=== PATIENT | female | born 1995 | race Caucasian/White ===

== ENCOUNTER 2017-11-13 23:06 | Emergency (ER) | payer MEDICAID, SELFPAY ==
[2017-11-13 23:07] VITALS: BP 158/127; PULSE 100; RESP 18; TEMP 37; O2SAT 100; BMI 62.4
[2017-11-13 23:38] LABS: Vista UDS pH Range 6
[2017-11-13 23:45] LABS: Amphetamine Urine VISTA NEGATIVE (<1000 ng/mL); Barbiturate Urine VISTA NEGATIVE (< 200 ng/mL); Benzodiazepine Urine VISTA NEGATIVE (< 200 ng/mL); Cocaine Urine VISTA NEGATIVE (< 300 ng/mL); Ecstacy Urine VISTA NEGATIVE (< 500 ng/mL); Methadone Urine VISTA NEGATIVE (< 300 ng/mL); PCP Urine VISTA NEGATIVE (< 25 ng/mL); THC Urine VISTA NEGATIVE (< 50 ng/mL)
[2017-11-13 23:59] LABS: Absolute Lymphocyte Count 4.21 X10^3/ul (0.83-4.51); Absolute Neutrophil Count 10.1 X10^3/uL (2.0-7.7); Basophil% 0.6 % (0-1); Eosinophil# 0.75 X10^3/uL; Eosinophils% 4.7 % (0-5); Hematocrit 39.5 % (37-47); Hemoglobin 12.2 g/dl (12.0-15.0); Lymphocyte # 4.21 X10^3/ul (4.0); Lymphocyte % 26.7 % (19-41); Mean Corp Hgb Conc 30.9 g/gl (32-36); Mean Corpuscular Hgb 23.3 pg (27.0-32.0); Mean Corpuscular Volume 75.4 fL (81-99); Mean Platelet Vol. 11.1 fl (6.2-12.0); Monocyte# 0.63 X10^3/uL; Neutrophil # 10.05 X10^3/uL (2.7-7.7); Neutrophil % 63.7 % (47-70); Platelet Count 291 K/mm3 (150-450); RBC Distribution Width CV 17.3 % (11.6-14.6); RBC Distribution Width SD 46.1 fl (35.1-43.9); Red Blood Count 5.24 M/mm3 (4.2-5.4); White Blood Count 15.8 K/mm3 (4.4-11.0)
[2017-11-14] VITALS (9 sets, daily range): BP systolic 108–132; BP diastolic 45–68; PULSE 74–87; RESP 14–18; O2SAT 97–98
[2017-11-14] LABS: POSITIVE COUNT NO; POSITIVE DIFFERENTIAL NO; POSITIVE MORPHOLOGY NO
[2017-11-14 00:12] LABS: Alcohol, Blood (Medical)-Serum < 3.0 mg/dL
[2017-11-14 00:16] LABS: Anion Gap 9 (5-15); BUN 14 mg/dL (7-18); BUN/Creat Ratio 21.7 RATIO (10-20); Calcium,Total 8.6 mg/dL (8.5-10.1); Chloride 106 mmol/L (98-107); Creatinine, Serum 0.64 mg/dL (0.55-1.02); EST Glomerular Filtration Rate 124 mL/min (>60); Est Glom Filt Rate - Afr Amer 150 mL/min (>60); Estimated Creatinine Clearance 100.72 ml/min; Glucose 84 mg/dL (74-106); Potassium 4.1 mmol/L (3.5-5.1); Sodium Level 137 mmol/L (136-145)
[2017-11-14 00:28] LABS: Pregnancy, Serum, hCG Quali. NEGATIVE Negative (0-9 Nonpreg)
[2017-11-14 01:03] LABS: Mucous, Urine 0 SEEN /hpf (<or=2+); Red Blood Cells-Urine 0 SEEN /hpf (0-5)
[2017-11-14 01:06] LABS: Color, Urine Yellow (Yellow); Glucose, Dipstick Normal (Normal); Ketone-Dipstick Negative (Negative); Leukocyte Esterase-Dipstick Negative /ul (Negative); Nitrite-Dipstick Negative (Negative); Occult Blood-Urine Negative /ul (Negative); Protein-Dipstick Negative (Negative); Urine Bilirubin Dipstick Negative (Negative); Urine Clarity Sl. Cloudy (Clear); Urine Urobilinogen Normal (Normal)
[2017-11-14 01:17] LABS: Bacteria 1+ /hpf (None Seen); Squamous Epithelial Cells - UA 10-25 SEEN /hpf (5-10); White Blood Cells 0-5 SEEN /hpf (0-5)
[2017-11-14] MEDS: Acetaminophen 500 MG Tablet 1000 MG PO (01:40)
--- NOTE | 2017-11-14 01:45 | ED.RN ---
PT REPORTS ACKERMAN. DR. BERMUDEZ INFORMED. MEDICATION GIVEN ORDERED. PT GIVEN SPRITE. INFORMED COUNSELOR IS PRESENT AND WILL BE IN SHORTLY.
--- NOTE | 2017-11-14 03:12 | EKG12_ITS ---
Test Reason : SUICIDAL Blood Pressure : / mmHG Vent. Rate : 080 BPM Atrial Rate : 080 BPM P-R Int : 146 ms QRS Dur : 082 ms QT Int : 368 ms P-R-T Axes : 030 022 008 degrees QTc Int : 424 ms Normal sinus rhythm with sinus arrhythmia Normal ECG Confirmed by REYNALDO AYERS, MEÑO ([id number]), general expeditor ANDER HEMPHILL ([id number]) on 11/18/2017 4:37:26 PM Referred By: CHAD Confirmed By:MEÑO JACOBS MD
[2017-11-14 04:23] LABS: AST(SGOT) 23 U/L (15-37); Alanine Aminotransfer ALT/SGPT 29 U/L (13-56); Albumin, Serum 3.8 g/dL (3.2-5.0); Alkaline Phosphatase 106 U/L (45-117); Bilirubin, Direct < 0.05 mg/dL (0.00-0.30); Globulin 4.8 g/dL (2.2-4.2); Protein, Total 8.6 g/dL (6.4-8.2)
--- NOTE | 2017-11-14 04:57 | ED.DCSUM_ITS ---
- ER Visit Summary Date of Service: 11/14/17 Chief Complaint: Suicidal ideation History of Present Illness: The patient is a 22 F who reports suicidal thoughts for quite a while. Patient states she had a miscarriage in September and her suicidal thoughts have worsened since that time. Patient denies a specific plan but states she has spontaneous thoughts. For example, patient states she thought about turning her car in front of another vehicle tonight while driving to the emergency room. She seems to have these very impulsive and spontaneous random ideas on how to hurt herself. Patient has attempted suicide in the past. She has not been hospitalized for couple years. Past history significant for anxiety, depression, asthma, and PCOS. Physical Examination: Vital signs are significant for blood pressure 150/127, otherwise unremarkable. Patient sitting upright in bed no acute distress. Head neck examination is normal. Heart is regular rate and rhythm. Lung sounds are clear. Abdomen is soft, obese, nontender. Psychiatric evaluation reveals depressed affect with continued suicidal thoughts. Test Results: EKG is sinus at 80 with no sign of acute ischemia. CBC was a white count of 15.8 with normal differential. Chemistry studies and LFTs are normal. Urine is normal. test negative. Tox and EtOH are negative. Emergency Department Course and Treatment: Patient was given Tylenol for a headache here. She has been alert and cooperative. [facility] has seen the patient. She will likely require transfer and information has been sent to [facility]. We are waiting to hear back from them at this time. Treatment Plan: [] Disposition: Anticipated transfer Impression: Suicidal ideation This note was generated with Fluidnet dictation software. It may contain incorrect words, spelling, and punctuation that were not noted in review of the chart prior to signing ED Disposition - Plan for ED Patient: Chief Complaint: Suicidal Referrals: Care Physician,No Primary [Primary Care Provider] -
--- NOTE | 2017-11-14 07:05 | NURSING ---
MEME FROM CRISIS SAID THAT [facility] IS FULL AND PATIENT CHART IS ON THE DR NESBITT TO REVIEW THIS MORNING
--- NOTE | 2017-11-14 07:08 | ED.RN ---
Report received, care of patient assumed. Introduced self to patient. Patient arouses easily to name. Denies needs at this time. Await breakfast tray. Call light in reach.
--- NOTE | 2017-11-14 08:01 | NURSING ---
MEME CALLED AT [phone] AND STATED THAT [facility] WILL BE RECEIVING PATIENT LATER TODAY
--- NOTE | 2017-11-14 13:30 | CASEMGMT ---
Social Work - Emergency Department Received consult from ED RN NAOMI who reports [facility] staff had inquired whether hospital social welfare research worker could assist patient in getting insurance. Patient reportedly had Medicaid at one point but is currently self pay, slated to transfer to [facility] later today. 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 Met with patient, introducing to role and reason for visit. Patient confirms does not have insurance, at one point did have Medicaid but then lost insurance when moved out of mother's home. Patient reports has tried to call the 800 number to apply but has not had luck. Patient agreeable to start Medicaid application on paper, to have this faxed to [facility] in [place]. Educated patient that when out of [facility] patient should follow up with [facility] to status of application, and that likely there will be mail waiting for patient at home regarding what patient needs to gather for further processing of application. Patient voiced understanding. Faxed Medicaid application to [facility] in [place] at [phone]. Provided patient with list of what to gather up for application as well as number to call when patient is ready to follow up. Patient expresses understanding. Through conversation patient reports she and patient's boyfriend moved in with patient's grandmother and grandmother's boyfriend. The older adults in the home are independent with self care, though patient has been helping with transportation. The grandmother's boyfriend reportedly had a heart attack in September, but is due to be cleared for return to work next week. Patient reports to work 3rd shift at [employer], and that patient does give money to grandmother to help with food and household needs. Patient denies any safety concerns in the home. Patient reports life has been stressful with family members' health issues, and then patient also reportedly having a miscarriage in September (about 3-5 weeks gestation at time of loss per patient report). Patient reports agreement with plan for further mental health treatment. Patient teary eyed a few times during social work visit, affect flattened, eye contact normal, pleasant demeanor. Updated RN NAOMI Reaves of social work intervention. ED staff updated. No further needs requested or indicated. Further care and treatment to be provided by [facility], from there patient will have follow up and discharge plan formulated. -JULIA Ragland, JORJE
--- NOTE | 2017-11-14 13:58 | ED.RN ---
REPORT GIVEN TO JANE LAWSON AT [facility]. CANNOT ACCEPT PATIENT UNTIL AFTER 1530.
== END 2017-11-14 15:06 ==
PROVIDERS: Emergency Provider Emergency Medicine
DX: R45.851 Suicidal ideations (principal); E28.2 Polycystic ovarian syndrome; E66.9 Obesity, unspecified; Z72.0 Tobacco use
CPT/HCPCS: 80048; 80076; 80307; 80320; 81001; 84703; 85025; 93005; 99284; G0480

== ENCOUNTER 2017-12-27 19:07 | Emergency (ER) | payer MEDICAID, SELFPAY ==
[2017-12-27 19:09] VITALS: BP 150/109; PULSE 107; RESP 20; TEMP 36; O2SAT 98; BMI 62.1
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
[2017-12-27] MEDS: morphine 8 MG/ML Syringe IV (19:33)
[2017-12-27] MEDS: 0.9% Normal Saline 1,000 ML 250 ML IV (19:33)
[2017-12-27] MEDS: Ondansetron 4 MG/2 ML Vial IV (19:33)
[2017-12-27 20:05] LABS: Anion Gap 8 (5-15); BUN 17 mg/dL (7-18); BUN/Creat Ratio 20.8 RATIO (10-20); Calcium,Total 8.6 mg/dL (8.5-10.1); Chloride 108 mmol/L (98-107); Creatinine, Serum 0.82 mg/dL (0.55-1.02); EST Glomerular Filtration Rate 94 mL/min (>60); Est Glom Filt Rate - Afr Amer 114 mL/min (>60); Estimated Creatinine Clearance 78.61 ml/min; Glucose 90 mg/dL (74-106); Potassium 3.6 mmol/L (3.5-5.1); Sodium Level 142 mmol/L (136-145)
[2017-12-27 20:23] VITALS: BP 99/56; PULSE 84; RESP 18; O2SAT 95
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
[2017-12-27 22:11] VITALS: BP 110/64; PULSE 89; RESP 16; O2SAT 99
== END 2017-12-27 22:11 | disposition home or self-care (01) ==
PROVIDERS: Emergency Provider Emergency Medicine
DX: S20.211A Contusion of right front wall of thorax, initial encounter (principal); S30.1XXA Contusion of abdominal wall, initial encounter; E28.2 Polycystic ovarian syndrome; V48.1XXA Car passenger injured in noncollision transport accident in nontraffic accident, initial encounter; Y93.I9 Activity, other involving external motion; Y92.410 Unspecified street and highway as the place of occurrence of the external cause; Y99.8 Other external cause status
CPT/HCPCS: 74177; 80048; 96361; 96374; 96375; 99283; J7030; Q9967; J2405

== ENCOUNTER 2020-02-06 16:50 | Emergency (ER) | payer OTHER, SELFPAY ==
[2020-02-06 16:50] VITALS: BP 159/89; PULSE 115; RESP 20; TEMP 37.1; O2SAT 96; BMI 73.8
--- NOTE | 2020-02-06 17:06 | ED.VIS.GEN ---
History of Present Illness Chief Complaint: Sore Throat Informant: Patient Narrative: Patient presents the emergency department on day 3 with swollen tonsils with white spots. She states it is difficult for her to swallow because of the swelling. She notes soreness on the sides of her neck. No fever. No cough. She states she saw her doctor and they had her swab for COVID which came back negative. She works in home health care. Past Medical History - Allergies and Home Meds Allergies/Adverse Reactions: Allergies amoxicillin Allergy (Verified 02/06/20 16:51) Hives pseudoephedrine Allergy (Verified 12/29/17 16:38) Rash Primary Care Physician: Care Physician,No Primary [Primary Care Provider] - Smoking Status: Current some day smoker Review of Systems General: Denies: Chills, Fever, Sweats Eyes: Denies: Visual changes - bilaterally, Diplopia ENT: Reports: - - Swollen tonsils. Denies: Rhinorrhea, Sore throat Cardiovascular: Denies: Chest pain, Palpitations Respiratory: Denies: Dyspnea, Cough, Dyspnea on exertion Gastrointestinal: Denies: Abdominal pain, Nausea, Vomiting, Diarrhea, Melena, Hematochezia Genitourinary: Denies: Dysuria, Hematuria, Frequency Musculoskeletal: Denies: Back pain, Extremity Pain Skin: Denies: Rash, Wounds Neurological: Denies: Headache, Weakness, Numbness Physical Exam Vital Signs/Narrative: Vital Signs Temp Pulse Resp BP Pulse Ox 02/06/20 16:50 98.7 F 115 H 20 H 159/89 H 96 General: Well nourished, Well developed, No Acute Distress Head: Normocephalic, Atraumatic Eyes: Perrl, EOMI ENT: Moist mucous membranes, No rhinorrhea, - - Bilateral tonsillar enlargement with erythema and exudate. Neck: Supple, - - There are tender anterior lymph nodes. Cardiovascular: Regular rate, Regular rhythm, No murmurs Respiratory: No distress, CTA bilaterally, Chest nontender Abdomen: Soft, Nontender, Nondistended, Normal bowel sounds Back: Nontender, Normal Inspection Extremities: Nontender, No edema Skin: Normal color, No rash Neurological: Alert, Oriented x3, Cranial nerves II-XII grossly intact, Normal Strength, Normal Sensation Psychological: Normal affect, Normal Mood Diagnostic/Tx/Re-eval - Medical Decision Making Throat culture was obtained. She has 3 out of 4 Centor criteria. We placed on azithromycin due to amoxicillin allergy. I will also give her an oral dose of Decadron. We talked about mononucleosis and the testing for that. ED Disposition - Plan for ED Patient: Disposition: Home or Assisted Living Diagnosis: Streptococcal pharyngitis Instructions: ED Pharyngitis Report Pending Prescriptions: Azithromycin 500 mg PO DAILY #5 tab Transmission Status: Pending to [facility]30 Additional Instructions: Follow-up with your primary care physician if not improved
[2020-02-06] MEDS: dexAMETHasone 10 MG/ML Vial PO.IVFORM (17:15)
[2020-02-06 17:17] VITALS: BP 159/89; PULSE 115; RESP 20; TEMP 37.1; O2SAT 96
== END 2020-02-06 17:42 | disposition home or self-care (01) ==
LOC: ED 17:34
PROVIDERS: Emergency Provider Emergency Medicine
DX: J02.0 Streptococcal pharyngitis (principal); F17.210 Nicotine dependence, cigarettes, uncomplicated
CPT/HCPCS: 87070; 99283

== ENCOUNTER 2020-10-05 19:01 | Inpatient (IN) | payer OTHER, SELFPAY ==
[2020-10-05 19:01] VITALS: BP 147/82; PULSE 112; PULSE 116; RESP 18; TEMP 36.1; O2SAT 97; BMI 74.9
[2020-10-05] MEDS: 0.9% Normal Saline 1,000 ML 1000 ML IV (19:29)
[2020-10-05] MEDS: Mag Hydrox/Al Hydrox/Simeth 30 ML UDC PO (19:29)
[2020-10-05] MEDS: Ondansetron 4 MG/2 ML Vial IV (19:29)
[2020-10-05 19:37] LABS: Absolute Lymphocyte Count 2.61 X10^3/uL (0.83-4.51); Absolute Neutrophil Count 11.9 X10^3/uL (2.0-7.7); Basophil# 0.09 X10^3/uL; Basophil% 0.6 % (0-1); Eosinophil# 0.53 X10^3/uL; Eosinophils% 3.3 % (0-5); Hematocrit 36.9 % (37-47); Hemoglobin 11.4 g/dL (12.0-15.0); Lymphocyte # 2.61 X10^3/ul (4.0); Lymphocyte % 16.3 % (19-41); Mean Corp Hgb Conc 30.9 g/dL (32-36); Mean Corpuscular Hgb 24.1 pg (27.0-32.0); Monocyte# 0.79 X10^3/uL; Monocyte% 4.9 % (0-10); NRBC Flagged by Analyzer 0 % (0-5); Neutrophil # 11.86 X10^3/uL (2.7-7.7); Neutrophil % 74.3 % (47-70); Platelet Count 338 K/mm3 (150-450); RBC Distribution Width CV 15.9 % (11.6-14.6); Red Blood Count 4.73 M/mm3 (4.2-5.4)
[2020-10-05 19:49] LABS: Internal QC Validated? YES +Cl - CLEAR BKGD; Pregnancy, Serum, hCG Quali. NEGATIVE Negative
[2020-10-05 20:00] LABS: ALB/GLOB Ratio 0.6 RATIO (0.9-2.4); AST(SGOT) 20 U/L (15-37); Alanine Aminotransfer ALT/SGPT 41 U/L (13-56); Albumin, Serum 3.3 g/dL (3.2-5.0); Alkaline Phosphatase 108 U/L (45-117); Anion Gap 5 (5-15); BUN 10 mg/dL (7-18); BUN/Creat Ratio 11.6 RATIO (10-20); Calcium,Total 9.1 mg/dL (8.5-10.1); Chloride 107 mmol/L (98-107); Creatinine, Serum 0.86 mg/dL (0.55-1.02); EST Glomerular Filtration Rate 87 mL/min (>60); Est Glom Filt Rate - Afr Amer 105 mL/min (>60); Estimated Creatinine Clearance 73.08 ml/min; Globulin 5.1 g/dL (2.2-4.2); Glucose 98 mg/dL (74-106); Lipase 7791 U/L (73-393); Potassium 3.5 mmol/L (3.5-5.1); Protein, Total 8.4 g/dL (6.4-8.2); Sodium Level 138 mmol/L (136-145)
--- NOTE | 2020-10-05 20:18 | US_ITS ---
HISTORY: Abdominal pain. Pancreatitis. TECHNIQUE: Whitehead scale and color doppler imaging was performed of the pancreas, liver, and gallbladder. COMPARISON: Most recent comparison study is a CT scan of the abdomen and pelvis from December 27, 2017. The study is limited in utility due to the patient's large size of over 400 pounds. FINDINGS: # of images incl. paperwork: 112 The liver is borderline enlarged at 18.3 cm. The liver is coarse in echotexture as well poor visualization of intrahepatic vascular structures, suggestive of hepatic steatosis No gallstones, gallbladder wall thickening or biliary dilatation. Gallbladder wall measures 1 mm. Common bile duct measures 4 mm. No tenderness upon insonation the gallbladder. Visualized pancreas is normal in appearance. Right kidney is normal in size and appearance. The IVC and aorta are not well seen. Hepatopedal flow is present within the central portal vein. US/Abdomen Limited IMPRESSION: Limited study due to patient's large body habitus. No acute disease perceived. Probable hepatomegaly and hepatic steatosis.. at 2129 Reported and signed by: Niels Medellin MD Electronically Signed: Niels Medellin MD at 21:28 EST Tel , Service support ,
[2020-10-05] MEDS: Morphine 4 MG/ML Syringe IV (20:31)
--- NOTE | 2020-10-05 20:31 | ED.VISSUMM ---
- ER Visit Summary Date of Service: 10/05/20 Chief Complaint: Abdominal pain History of Present Illness: The patient is a 25 F with no primary care physician. She reports that she has upper abdominal pain that began approximately week ago. Is an intermittent pain lasts hours at a time. She describes it as a sharp, burning pain. States that currently it is 5 out of 10 in severity. Stated 10 at worst. Is worsened by movement. Is relieved by laying down. She reports has had a poor appetite. She denies any intolerance to spicy or fatty foods. She reports that she been nausea and vomited 3 times. No blood in her emesis. She had one episode of diarrhea today. No blood in her stools or black tarry stools. No dysuria or frequency. She is on her menstrual period now. She reports that she has been on this for 12-1/2 weeks and then it ended 4 to 4 days and then came back. Physical Examination: Vitals: Stable. Afebrile. General: Well-nourished and well-developed. Head: Normocephalic atraumatic. Neck: Supple, no lymphadenopathy. No JVD. Nontender. Cardiovascular: Regular rate and rhythm. No murmurs. Respiratory: No respiratory distress. Clear to auscultation bilaterally. Abdominal: Soft, mild epigastric tenderness to palpation, no tenderness in the right upper quadrant and negative Mach[place] sign, nondistended, normal bowel sounds. No guarding, rebound, or peritoneal signs. Back: Nontender. Extremities: Nontender, no edema. Skin: Normal color, no rash. Neurologic: Alert and oriented ?3. Cranial nerves II through XII are intact. Normal strength and sensation. Psych: Normal affect. Test Results: CBC shows a white count of 16.0 74 segmented neutrophils and 16 lymphocytes. H&H is 11.4 and 36.9. Chem-7 is normal. LFTs show a total protein of 8.4 and globin of 5.1. Lipase is 7791. test is negative. Clinical Impression(s) from Imaging Studies Abdomen Ultrasound 10/05/20 20:18 IMPRESSION: Limited study due to patient's large body habitus. No acute disease perceived. Probable hepatomegaly and hepatic steatosis.. at 2129 Reported and signed by: Niels Medellin MD Electronically Signed: Niels Medellin MD at 21:28 EST Tel , Service support , Emergency Department Course and Treatment: Patient had an IV placed. She was given Zofran IV and a GI cocktail with no relief. She was then given morphine IV and is resting more comfortably. Treatment Plan: The patient was discussed with Dr. Lawson and will be admitted for further evaluation and treatment. Disposition: Admitted in stable condition. Impression: 1. Pancreatitis. This note was generated with Infiniu dictation software. It may contain incorrect words, spelling, and punctuation that were not noted in review of the chart prior to signing ED Disposition - Plan for ED Patient:
[2020-10-05 21:01] VITALS: RESP 18
[2020-10-05 22:00] VITALS: BP 148/91; PULSE 91; RESP 18; TEMP 36.9; O2SAT 98
[2020-10-05 22:35] LABS: Bedside Glucose 85 mg/dL (70-110)
[2020-10-05 22:36] LABS: Cholesterol 226 mg/dL (200); High Density Lipoprotein 30 mg/dL; Triglycerides 169 mg/dL; Very Low Density Lipoprotein 34 mg/dL (5-40)
--- NOTE | 2020-10-05 22:59 | PCM.HP.STD ---
Problem List (1) Pancreatitis Status: Acute (2) Streptococcal pharyngitis Status: Inactive History of Present Illness Date of Admission: 10/05/20 Chief Complaint: epigastric pain The patient is a 25 year old F with a significant history of morbid obesity; major depression; PTSD and PCOS who presents emergency department with a 1 week history of episodic epigastric pain that radiates to her lower back. She describes her pain as sharp and burning. Associated with her symptoms is nausea and vomiting. Her pain typically is 5-6 on a scale of 1-10. Occasionally her pain gets higher than that. The pain improves with rest and it worsens with activity. Patient saw her PCP about a week ago. Her PCP thought patient may be having food poisoning. Also patient reports a decrease in urination and a painful severe constipation. However on the day of presentation she had loose stools. She reports poor appetite. Past Medical History Medical History: Medical History (Last Reviewed 10/05/20 @ 23:[address] Janak Lawson MD) Asthma J45.909 Chest pain R07.9 PCOS (polycystic ovarian syndrome) E28.2 Suicidal thoughts R45.851 HTN (hypertension) I10 Allergies amoxicillin Allergy (Verified 02/06/20 17:17) Hives pseudoephedrine Allergy (Verified 02/06/20 17:17) Rash Home Medications: Ambulatory Orders Medication Instructions Recorded sertraline 25 mg tablet 25 mg PO QDAY #14 tab 12/29/17 Buspirone HCl 30 mg PO DAILY 02/06/20 metFORMIN HCl [Glucophage] 500 mg PO BID 02/06/20 Surgical History: - - Finger surgery; D&C Smoking Status: Never smoker - *Family History Maternal Family History: Family History (Last Reviewed 10/05/20 @ 23:[address] Janak Lawson MD) Other Diabetes Review of Systems Constitutional: Denies: Chills, Fever, Weight Change HEENT: Denies: Head Aches, Sinus Congestion, Sinus Drainage Cardiovascular: Denies: Chest Pain, Palpitations Respiratory: Denies: Cough, Shortness of breath at rest, Sputum production Gastrointestinal: Reports: Abdominal Pain, Constipation, Diarrhea, Nausea, Vomiting Genitourinary: Denies: Dysuria Musculoskeletal: Denies: Joint Pain, Joint Tenderness Skin: Denies: Rash, Wounds Neurological: Denies: Numbness, Tingling, Focal weakness Psychiatric: Reports: Depression. Denies: Anxiety, Homicidal Ideations, Suicidal Ideations Hematologic/ Lymphatic: Denies: Easy Bruising, Easy Bleeding VTE Information - Inpt Only VTE Present on Admission: No VTE Mechan Device Prophylaxis: None VTE Pharm Prophylaxis ordered?: Yes Patient Problems: Active and Suspected Problems (Last Updated 12/29/17 @ 16:40 by Lily Jacques) Pancreatitis (Acute) - Physical Exam Vitals/I&O's: Vital Signs Temp Pulse Resp BP Pulse Ox 98.4 F 91 18 148/91 H 98 10/05/20 22:00 10/05/20 22:00 10/05/20 22:00 10/05/20 22:00 10/05/20 22:00 Oxygen Delivery Method Room Air Weight: 174.1 kg Body Mass Index (BMI) 74.9 Finger Stick Blood Glucose 85 Intake and Output for Last 24 Hours 10/03/20 10/04/20 10/05/20 23:59 23:59 23:59 Intake Total 1000 / 1000 Balance 1000 / 1000 General: Alert, Oriented x3, Cooperative, - - Obese HEENT: Atraumatic, PERRLA, EOMI, Normocephalic Neck: Supple, No JVD, Negative Carotid Bruits Lungs: Clear to auscultation, Normal air movement, No rhonchi, No wheeze, No rales Cardiovascular: Regular rate, Normal S1, Normal S2, No murmurs Abdomen: Bowel Sounds Present, Soft, Non Tender Extremities: No edema, Capillary Refill Less than 3 Seconds Skin: No rashes, No breakdown Musculoskeletal: No Tenderness to Palpation of Joints or Extremities Neurological: Cranial nerves II-XII grossly intact Psych/Mental Status: Normal Affect, Appropriate Laboratory Results 10/05/20 19:31: WBC 16.0 H, RBC 4.73, Hgb 11.4 L, Hct 36.9 L, MCV 78.0 L, MCH 24.1 L, MCHC 30.9 L, RDW Std Deviation 45.0 H, RDW Coeff of Flavia 15.9 H, Plt Count 338, MPV 11.0, Immature Gran % (Auto) 0.600, Neut % (Auto) 74.3 H, Lymph % (Auto) 16.3 L, [place] % (Auto) 4.9, Eos % (Auto) 3.3, Baso % (Auto) 0.6, Absolute Neuts (auto) 11.9 H, Absolute Lymphs (auto) 2.61, Nucleated RBC % 0 10/05/20 19:31: Sodium 138, Potassium 3.5, Chloride 107, Carbon Dioxide 26.0, Anion Gap 5, BUN 10, Creatinine 0.86, Estim Creat Clear Calc 73.08, Est GFR (MDRD) Af Amer 105, Est GFR (MDRD) Non-Af 87, BUN/Creatinine Ratio 11.6, Glucose 98, Calcium 9.1, Total Bilirubin 0.40, AST 20, ALT 41, Alkaline Phosphatase 108, Total Protein 8.4 H, Albumin 3.3, Globulin 5.1 H, Albumin/Globulin Ratio 0.6 L, Lipase 7791 H 10/05/20 19:31: Serum , Qual NEGATIVE 10/05/20 19:31: Triglycerides 169, Cholesterol 226 H, LDL Cholesterol 162 H, VLDL Cholesterol 34, HDL Cholesterol 30 L 10/05/20 22:29: POC Glucose 85 Assessment/Plan All Active Problems (Last Updated 12/29/17 @ 16:40 by Lily Jacques) Pancreatitis (Acute) The patient is a 25 year old F with a significant history of morbid obesity; major depression; PTSD and PCOS who presents to the emergency department with a 1 week history of episodic epigastric pain that radiates to her lower back and found to have elevated lipase. Acute pancreatitis Abdomen was not optimal steady. Patient want to try food. Regular diet ordered. N.p.o. after midnight for HIDA scan. Morphine IV as needed for pain and Zofran IV as needed for nausea and vomiting. IV hydration with lactated Ringer's. Discussed emergent department doctor to get a lipid panel. Lipid panel returned with triglyceride of 169. Electrolytes are normal. Patient is an occasional drinker. Last time she drank was Halloween time Review of medical department labs showed elevated lipase and leukocytosis. Trend CBC and CMP. PCOS Hold metformin the hospital setting. Of note patient reports episodes of hypoglycemia at home. Trend CMP as above Morbid Obesity BMI: 75 kg/m?. Complicates care. Lifestyle modification recommended. Hyperlipidemia: Lipid panel with cholesterol 226. LDL cholesterol of 162. HDL cholesterol of 30. Lifestyle modification recommended. DVT prophylaxis Subcutaneous Lovenox ordered. Inpatient E&M: 63361 Init Hosp L3
--- NOTE | 2020-10-05 23:17 | NM_ITS ---
STUDY: NUCLEAR MEDICINE HIDA SCAN REASON FOR EXAM: Female, 25 years old. Abdominal pain, some nausea RADIATION DOSAGE (If Supplied By Facility): CTDIvol = ( ) mGy, DLP = ( ) mGycm. Individualized dose optimization techniques were used for this CT.? TECHNIQUE: Patient was injected with 5.8 mCi of mebrofenin, and scintiphotographs were taken every 1 minute to 60 minutes, then patient was injected with 3.5 mcg of SINCALIDE COMPARISON: Ultrasound from yesterday FINDINGS: There is prompt uptake of radiotracer by the liver. There is concentration and excretion of radiotracer by the liver into the common bile duct by 13 minutes, and greater tracer activity is noted within the gallbladder by 60 minutes. Radiotracer is noted within the duodenum by 30 minutes. Because no biliary obstruction was noted, patient was injected with SINCALIDE, and measurements for ejection fraction were obtained. The gallbladder ejection fraction measures only 5% which is abnormal and suggests biliary dyskinesia. NM/Hepatobilliary Img w/Pharm Int IMPRESSION: Normal filling of the gallbladder, and no biliary obstruction noted. Abnormally low gallbladder ejection fraction of 5% suggests biliary dyskinesia. Electronically Signed: Jim Mace MD at 12:35 EST , Service support ,
[2020-10-05 23:18] VITALS: BMI 74.2
[2020-10-05 23:26] VITALS: BP 120/55; PULSE 95; RESP 16; TEMP 36.8; O2SAT 100
[2020-10-05 23:37] VITALS: BMI 74.2
[2020-10-05] MEDS: Enoxaparin 40 MG/0.4 ML Syringe SC (23:48)
[2020-10-05] MEDS: 0.9% Saline Lock 10 ML Syringe IV (23:48)
[2020-10-05] MEDS: Lactated Ringers 1,000 ML 150 ML IV (23:48)
[2020-10-06 05:18] VITALS: BP 116/89; PULSE 93; RESP 18; TEMP 36.5; O2SAT 97
[2020-10-06] MEDS: Lactated Ringers 1,000 ML 150 ML IV (05:21)
[2020-10-06] MEDS: Ketorolac 15 MG/ML Vial IV ×2 (05:21→16:30)
[2020-10-06 06:40] LABS: Absolute Lymphocyte Count 3.51 X10^3/uL (0.83-4.51); Absolute Neutrophil Count 5.8 X10^3/uL (2.0-7.7); Basophil# 0.07 X10^3/uL; Basophil% 0.6 % (0-1); Eosinophil# 0.77 X10^3/uL; Eosinophils% 7.1 % (0-5); Hematocrit 33.8 % (37-47); Hemoglobin 10.5 g/dL (12.0-15.0); Lymphocyte # 3.51 X10^3/ul (4.0); Lymphocyte % 32.6 % (19-41); Mean Corp Hgb Conc 31.1 g/dL (32-36); Mean Corpuscular Hgb 24.4 pg (27.0-32.0); Mean Corpuscular Volume 78.4 fL (81-99); Mean Platelet Vol. 10.6 fl (6.2-12.0); Monocyte# 0.57 X10^3/uL; Monocyte% 5.3 % (0-10); NRBC Flagged by Analyzer 0 % (0-5); Neutrophil # 5.83 X10^3/uL (2.7-7.7); Neutrophil % 54.1 % (47-70); Platelet Count 303 K/mm3 (150-450); Red Blood Count 4.31 M/mm3 (4.2-5.4); White Blood Count 10.8 K/mm3 (4.4-11.0)
[2020-10-06 07:10] LABS: ALB/GLOB Ratio 0.6 RATIO (0.9-2.4); AST(SGOT) 18 U/L (15-37); Alanine Aminotransfer ALT/SGPT 36 U/L (13-56); Albumin, Serum 2.9 g/dL (3.2-5.0); Alkaline Phosphatase 94 U/L (45-117); Anion Gap 4 (5-15); BUN 10 mg/dL (7-18); BUN/Creat Ratio 12.3 RATIO (10-20); Calcium,Total 8.6 mg/dL (8.5-10.1); Chloride 107 mmol/L (98-107); Creatinine, Serum 0.81 mg/dL (0.55-1.02); EST Glomerular Filtration Rate 92 mL/min (>60); Est Glom Filt Rate - Afr Amer 112 mL/min (>60); Estimated Creatinine Clearance 77.59 ml/min; Globulin 4.5 g/dL (2.2-4.2); Glucose 96 mg/dL (74-106); Potassium 3.7 mmol/L (3.5-5.1); Protein, Total 7.4 g/dL (6.4-8.2); Sodium Level 140 mmol/L (136-145)
[2020-10-06 10:49] VITALS: BP 109/52; PULSE 72; RESP 18; TEMP 36.8; O2SAT 98
[2020-10-06] MEDS: Sertraline 50 MG Tablet 25 MG PO (10:59)
[2020-10-06] MEDS: Enoxaparin 40 MG/0.4 ML Syringe SC ×2 (10:59→22:27)
[2020-10-06 11:00] VITALS: BP 135/71; PULSE 80; RESP 16; TEMP 36.9; O2SAT 98
[2020-10-06] MEDS: Famotidine 200 MG/20 ML MDV 20 MG in 0.9% Normal Saline (Pres. free 8 ML 300 MG IV ×2 (11:04→22:28)
[2020-10-06 11:09] VITALS: RESP 16
--- NOTE | 2020-10-06 11:50 | CASEMGMT ---
RN NAOMI BODY COVERER CM to room to meet with patient for initial transition planning/care coordination assessment. RENNY SALGADO introduced self and role at [facility]. Pt voices understanding and consents to assessment at this time. Pt resting in bed in no distress at this time. Pt is A/O at this time and answers all questions appropriately. Care providers, pharmacy, and demographics verified/updated at this time. PCP: [facility] in [place] Specialists: None Preferred Pharmacy: [facility] in [place] Insurance: Commercial Insurance through her job Prescription Benefit: None Living Will/HPOA: States does not have LW or HCPOA . Interested in more information and would like to talk with SW at this time to complete paperwork. Made aware SW will be notified, but if SW is unable to meet with her prior to discharge, she was also provided information on advanced directives and given Social Service rac card with number to call if chooses in the future to utilize [facility] social work for advanced directive completion. LNOK: Mother, Kiesha. Grandmother, Nikki Living Arrangements: Lives alone in trailer w/3 steps to enter. Independent w/ADL's and IADL's. 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 Transportation: Pt states drives self and states no transportation concerns at this time. Mother will take her home @ d/c. DME: Has a glucometer. Pt states no need for further DME at this time. HHC/SNF: No history of either. No needs identified. Pt wishes to return home and states has no concerns with going home at time of discharge. CM to follow for any discharge planning/needs. Pt voices no further concerns/needs at this time. Advised pt to ask for CM if any further questions/concerns/needs arise. Voices understanding. PLAN: Home Pt does not have prescription coverage. Follow for any concerns w/cost of new medications at discharge. Alfredo GOMEZ RN, CM
--- NOTE | 2020-10-06 11:52 | PN_ITS ---
Patient Problems: Active and Suspected Problems (Last Reviewed 10/05/20 @ 23:[address] Janak Lawson MD) Pancreatitis (Acute) Subjective: Chief complaint: Follow-up after admission for acute pancreatitis. Patient seen and examined. No acute events overnight. Abdominal pain improved but still there. Denied nausea or vomiting. She complained of minimal right upper quadrant abdominal pain as well which is also improved. Denies fever chills. Denied drinking alcohol. Denied taking control pills. Her vital signs are stable. - Physical Exam Vitals/I&O's: Vital Signs Temp Pulse Resp BP Pulse Ox 98.5 F 80 16 135/71 H 98 10/06/20 11:00 10/06/20 11:00 10/06/20 11:09 10/06/20 11:00 10/06/20 11:00 Oxygen Delivery Method Room Air Weight: 380 lb Body Mass Index (BMI) 74.2 Finger Stick Blood Glucose 85 Intake and Output for Last 24 Hours 10/04/20 10/05/20 10/06/20 23:59 23:59 23:59 Intake Total 1000 / 1000 1305.0 / 1305.0 Output Total 0 / 0 Balance 1000 / 1000 1305.0 / 1305.0 General: Alert, Oriented x3, Cooperative, No apparent distress HEENT: Atraumatic, PERRLA, EOMI, Normocephalic Oral: Moist Mucosa, No Gingival or Mucosal Lesions/ Ulcerations Neck: Supple, No JVD, Negative Carotid Bruits, Trachea Midline, Thyroid Normal Size and Texture Lungs: Clear to auscultation, Normal air movement, No rhonchi, No wheeze, No rales, Diminished Cardiovascular: Regular rate, Regular Rhythm, Normal S1, Normal S2, PMI Normal Abdomen: Bowel Sounds Present, Soft, Non-Distended, No Hepato-splenomegaly, Obese, Tender - Minimal epigastric tenderness, no guarding or rigidity. Extremities: No clubbing, No cyanosis, No edema Skin: No rashes, No breakdown Lymphatic: No Cervical, Supraclavicular, or Inguinal Adenopathy Neurological: Cranial nerves II-XII grossly intact, Motor Exam 5/5 strength throughout Psych/Mental Status: Normal Affect, Appropriate, Alert and oriented to time, place, person, mood and affect Laboratory Results 10/05/20 19:31: WBC 16.0 H, RBC 4.73, Hgb 11.4 L, Hct 36.9 L, MCV 78.0 L, MCH 24.1 L, MCHC 30.9 L, RDW Std Deviation 45.0 H, RDW Coeff of Flavia 15.9 H, Plt Count 338, MPV 11.0, Immature Gran % (Auto) 0.600, Neut % (Auto) 74.3 H, Lymph % (Auto) 16.3 L, [place] % (Auto) 4.9, Eos % (Auto) 3.3, Baso % (Auto) 0.6, Absolute Neuts (auto) 11.9 H, Absolute Lymphs (auto) 2.61, Nucleated RBC % 0 10/05/20 19:31: Sodium 138, Potassium 3.5, Chloride 107, Carbon Dioxide 26.0, Anion Gap 5, BUN 10, Creatinine 0.86, Estim Creat Clear Calc 73.08, Est GFR (MDRD) Af Amer 105, Est GFR (MDRD) Non-Af 87, BUN/Creatinine Ratio 11.6, Glucose 98, Calcium 9.1, Total Bilirubin 0.40, AST 20, ALT 41, Alkaline Phosphatase 108, Total Protein 8.4 H, Albumin 3.3, Globulin 5.1 H, Albumin/Globulin Ratio 0.6 L, Lipase 7791 H 10/05/20 19:31: Serum , Qual NEGATIVE 10/05/20 19:31: Triglycerides 169, Cholesterol 226 H, LDL Cholesterol 162 H, VLDL Cholesterol 34, HDL Cholesterol 30 L 10/05/20 22:29: POC Glucose 85 10/06/20 06:25: WBC 10.8, RBC 4.31, Hgb 10.5 L, Hct 33.8 L, MCV 78.4 L, MCH 24.4 L, MCHC 31.1 L, RDW Std Deviation 46.0 H, RDW Coeff of Flavia 16.0 H, Plt Count 303, MPV 10.6, Immature Gran % (Auto) 0.300, Neut % (Auto) 54.1, Lymph % (Auto) 32.6, [place] % (Auto) 5.3, Eos % (Auto) 7.1 H, Baso % (Auto) 0.6, Absolute Neuts (auto) 5.8, Absolute Lymphs (auto) 3.51, Nucleated RBC % 0 10/06/20 06:25: Sodium 140, Potassium 3.7, Chloride 107, Carbon Dioxide 29.0, Anion Gap 4 L, BUN 10, Creatinine 0.81, Estim Creat Clear Calc 77.59, Est GFR (MDRD) Af Amer 112, Est GFR (MDRD) Non-Af 92, BUN/Creatinine Ratio 12.3, Glucose 96, Calcium 8.6, Total Bilirubin 0.50, AST 18, ALT 36, Alkaline Phosphatase 94, Total Protein 7.4, Albumin 2.9 L, Globulin 4.5 H, Albumin/Globulin Ratio 0.6 L Clinical Impression(s) from Imaging Studies Abdomen Ultrasound 10/05/20 20:18 IMPRESSION: Limited study due to patient's large body habitus. No acute disease perceived. Probable hepatomegaly and hepatic steatosis.. at 2129 Reported and signed by: Niels Medellin MD Electronically Signed: Niels Medellin MD at 21:28 EST Tel , Service support , Current Medications Buspirone HCl (Buspirone 5 Mg Tablet) [address] [facility] Last Admin: 10/06/20 05:25 Dose: Not Given Documented by: Enoxaparin Sodium (Enoxaparin 40 Mg/0.4 Ml Syringe) [address] [facility] Last Admin: 10/06/20 10:59 Dose: 40 mg Documented by: Lactated Ringer's () 1,000 mls @ 100 mls/hr IV .Q10H [facility] Last Infusion: 10/06/20 10:42 Dose: 100 mls/hr Documented by: Famotidine 20 mg/ Sodium (Chloride) 10 mls @ 300 mls/hr IV Q12 [facility] Last Admin: 10/06/20 11:04 Dose: 300 mls/hr Documented by: Ketorolac Tromethamine (Ketorolac 15 Mg/Ml Vial) 15 mg IV Q6H PRN PRN PRN Reason: pain 6-10 Stop: 10/11/20 02:20 Last Admin: 10/06/20 05:21 Dose: 15 mg Documented by: Ondansetron HCl (Ondansetron 4 Mg/2 Ml Vial) 4 mg IV Q6H PRN PRN PRN Reason: NAUSEA/VOMITING Sertraline HCl (Sertraline 50 Mg Tablet) [address] [facility] Last Admin: 10/06/20 10:59 Dose: 25 mg Documented by: Sodium Chloride (0.9% Saline Lock 10 Ml Syringe) 10 - 40 ml IV UD PRN PRN Reason: SALINE FLUSH Last Admin: 10/05/20 23:48 Dose: 10 ml Documented by: Medical Necessity - Tobacco Use Smoking Status: Former smoker Assessment/Plan All Active Problems (Last Reviewed 10/05/20 @ 23:[address] Janak Lawson MD) Pancreatitis (Acute) This is a 25 years old female patient presented to the emergency room because of epigastric pain and she was found to have elevated lipase consistent with acute pancreatitis and she was admitted for evaluation and treatment. #1 acute pancreatitis: Unclear etiology. Patient denied drinking alcohol. She is on IV fluids, IV antiemetics. LFT was unremarkable. Lipid profile revealed triglyceride of 169, total cholesterol of 226. She is not taking any medication that causes pancreatitis. Serum was negative. Ultrasound gallbladder was limited, revealed no gallstones, no biliary dilation, CBD diameter was normal. HIDA scan was done this morning, awaiting the results. Plan: Start IV morphine as needed for pain, IV Pepcid twice daily, repeat CBC and CMP tomorrow morning, repeat lipase tomorrow morning. #2 polycystic ovary syndrome: Metformin held at this time. #3 anxiety/depression/PTSD: Continue BuSpar, Zoloft. #4 DVT prophylaxis: Subcu Lovenox. This note was generated with [employer] dictation software. It may contain incorrect words, spelling, and punctuation that were not noted in checking the note before signing. Inpatient E&M: 62608 Subs Hosp L2
[2020-10-06] MEDS: busPIRone 5 MG Tablet 10 MG PO ×2 (15:05→22:28)
--- NOTE | 2020-10-06 15:55 | CASEMGMT ---
SW spoke w/pt in room in regard to LW/POA form and no prescription coverage. SW gave pt resources for prescription assistance. SW also spoke w/pt about LW/POA forms. Pt would like to complete POA form. SW explained will come back tomorrow to assist with this. SW to follow up w/pt tomorrow. JULIA Naranjo
[2020-10-06] MEDS: Lactated Ringers 1,000 ML 100 ML IV (16:30)
[2020-10-06 17:00] VITALS: BP 131/61; PULSE 66; RESP 16; RESP 18; TEMP 36.6; O2SAT 98
[2020-10-06 22:22] VITALS: BP 135/75; PULSE 82; RESP 17; TEMP 36.6; O2SAT 98
[2020-10-07] MEDS: Lactated Ringers 1,000 ML 100 ML IV (02:10)
[2020-10-07 02:12] VITALS: BP 130/60; PULSE 69; RESP 16; TEMP 36.8; O2SAT 96
[2020-10-07] MEDS: busPIRone 5 MG Tablet 10 MG PO (05:33)
[2020-10-07 06:41] LABS: Absolute Lymphocyte Count 2.59 X10^3/uL (0.83-4.51); Absolute Neutrophil Count 5.4 X10^3/uL (2.0-7.7); Basophil# 0.05 X10^3/uL; Basophil% 0.5 % (0-1); Eosinophil# 0.85 X10^3/uL; Eosinophils% 9.1 % (0-5); Hematocrit 34.6 % (37-47); Hemoglobin 10.5 g/dL (12.0-15.0); Lymphocyte # 2.59 X10^3/ul (4.0); Lymphocyte % 27.7 % (19-41); Mean Corp Hgb Conc 30.3 g/dL (32-36); Mean Corpuscular Hgb 24.1 pg (27.0-32.0); Mean Corpuscular Volume 79.4 fL (81-99); Mean Platelet Vol. 10.6 fl (6.2-12.0); Monocyte# 0.47 X10^3/uL; NRBC Flagged by Analyzer 0 % (0-5); Neutrophil # 5.37 X10^3/uL (2.7-7.7); Neutrophil % 57.5 % (47-70); Platelet Count 276 K/mm3 (150-450); RBC Distribution Width CV 15.9 % (11.6-14.6); RBC Distribution Width SD 45.7 fl (35.1-43.9); Red Blood Count 4.36 M/mm3 (4.2-5.4); White Blood Count 9.4 K/mm3 (4.4-11.0)
[2020-10-07 07:12] LABS: ALB/GLOB Ratio 0.6 RATIO (0.9-2.4); AST(SGOT) 20 U/L (15-37); Alanine Aminotransfer ALT/SGPT 35 U/L (13-56); Albumin, Serum 2.8 g/dL (3.2-5.0); Alkaline Phosphatase 88 U/L (45-117); Anion Gap 7 (5-15); BUN 9 mg/dL (7-18); Calcium,Total 8.4 mg/dL (8.5-10.1); Chloride 106 mmol/L (98-107); Creatinine, Serum 0.75 mg/dL (0.55-1.02); EST Glomerular Filtration Rate 102 mL/min (>60); Est Glom Filt Rate - Afr Amer 123 mL/min (>60); Globulin 4.4 g/dL (2.2-4.2); Glucose 81 mg/dL (74-106); Lipase 123 U/L (73-393); Potassium 3.5 mmol/L (3.5-5.1); Protein, Total 7.2 g/dL (6.4-8.2); Sodium Level 139 mmol/L (136-145)
[2020-10-07 08:38] VITALS: BP 124/61; PULSE 66; RESP 16; TEMP 36.5; O2SAT 99
[2020-10-07] MEDS: Enoxaparin 40 MG/0.4 ML Syringe SC (08:41)
[2020-10-07] MEDS: Famotidine 200 MG/20 ML MDV 20 MG in 0.9% Normal Saline (Pres. free 8 ML 300 MG IV (08:41)
[2020-10-07] MEDS: Sertraline 50 MG Tablet 25 MG PO (08:41)
--- NOTE | 2020-10-07 09:07 | CASEMGMT ---
Patient completed the Healthcare POA, gave pt original and copies, copy placed in chart. Pt chose not to complete the Living Will at this time. JULIA Naranjo
--- NOTE | 2020-10-07 12:07 | PCM.DC ---
- Discharge Diagnoses Current Active Problems: Current Active and Chronic Problems (Last Reviewed 10/05/20 @ 23:[address] Janak Lawson MD) Pancreatitis (Acute) You will use the following diet at home:: Full liquid, Other - Advance diet slowly to regular diet in the next 2 or 3 days. Your food should be the consistency of: Regular Discharge Activity: Return to Normal Activity Weight Bearing Status: Full weight bearing Call your doctor if you observe: Fever of 101 or Higher, Shortness of breath, Dizziness, Fainting spells, Chest pain, Increased palpitations (irregular heartbeat), Uncontrolled pain Allergies/Adverse Reactions: Allergies amoxicillin Allergy (Verified 02/06/20 17:17) Hives pseudoephedrine Allergy (Verified 02/06/20 17:17) Rash Medications to take at Discharge sertraline 25 mg tablet 25 mg PO QDAY #14 tab 12/29/17 Buspirone HCl 30 mg PO DAILY 02/06/20 metFORMIN HCl [Glucophage] 500 mg PO BID 02/06/20 Pantoprazole Sodium [Protonix] 40 mg PO DAILY #14 tab 10/07/20 The following prescriptions were given: Pantoprazole Sodium [Protonix] 40 mg PO DAILY #14 tab Transmission Status: Pending to [id number] [facility] Primary Care Physician: Care Physician,No Primary [NON-STAFF] - Please follow up with your Primary Care Physician in: 1 week. Test Results: Test results from this visit will be discussed in further detail at your follow-up appointment, if applicable. Please Follow Up With: Unruly Dodd MD When: 2 weeks.
--- NOTE | 2020-10-07 12:09 | PCM.DC.SUM ---
Discharge Date and Diagnosis - Problem List Patient Problems: Active and Suspected Problems (Last Reviewed 10/05/20 @ 23:[address] Janak Lawson MD) Pancreatitis (Acute) Date of Admission: 10/05/20 Date of Discharge: 10/07/20 - Primary Discharge Diagnosis Acute Problems: Active Problems (Last Reviewed 10/05/20 @ 23:[address] Janak Lawson MD) #1 acute pancreatitis, no obvious etiology. #2 biliary dyskinesia. Hospital Course and Treatment Imaging Results: Clinical Impression(s) from Imaging Studies Abdomen Ultrasound 10/05/20 20:18 IMPRESSION: Limited study due to patient's large body habitus. No acute disease perceived. Probable hepatomegaly and hepatic steatosis.. at 2129 Reported and signed by: Niels Medellin MD Electronically Signed: Niels Medellin MD at 21:28 EST Tel , Service support , Hepatobiliary Scan Nuclear Medicine 10/05/20 23:17 IMPRESSION: Normal filling of the gallbladder, and no biliary obstruction noted. Abnormally low gallbladder ejection fraction of 5% suggests biliary dyskinesia. Electronically Signed: Jim Mace MD at 12:35 EST , Service support , Operations: None Procedures: None Summary of Care Provided: Patient seen and examined on the day of discharge and appeared to be stable to be discharged home. Abdominal pain has been improving, denies any more nausea or vomiting. Her lipase is back to normal. She was started on clear liquids and tolerated and her diet was advanced to full liquid diet. Her vital signs were stable. The patient is a 25 year old F presented to the emergency room because of epigastric pain and she was found to have a lipase of 7791 consistent with acute pancreatitis. She was admitted to [facility], kept on n.p.o., started on IV pain medications, IV antiemetics and IV Pepcid as well as IV morphine as needed for pain. There was no clear etiology identified for this acute pancreatitis. Patient denied alcohol drinking. She denied taking medications at can cause pancreatitis such as control pills. Lipid profile revealed total cholesterol of 226, triglyceride was 169. Serum was negative. Her LFT was unremarkable. Ultrasound gallbladder done and showed no gallstones, no gallbladder wall thickening or dilatation, CBD diameter was 4 mm. Because ultrasound was limited study, HIDA scan was done. HIDA scan revealed normal filling of the gallbladder without biliary obstruction, abnormally low gallbladder ejection fraction of 5% suggestive of biliary dyskinesia. With above-mentioned treatment, patient symptoms improved and her lipase came down to 123. LFT remained stable, unremarkable. Her WBC returned back to normal and she remained afebrile. Patient was started on clear liquids and was tolerated and she was advanced to full liquid diet. Patient discharged home in a stable medical condition, discharged on Protonix twice daily for 1 week, continue to have previous home medications without any changes, instructed to follow-up with general surgery as outpatient and patient will see Dr. Dodd in 2 weeks regarding the biliary dyskinesia and she may need to go for cholecystectomy, recommended proper PCP in 1 week. Patient Problems: Active and Suspected Problems (Last Reviewed 10/05/20 @ 23:[address] Janak Lawson MD) Pancreatitis (Acute) - Physical Exam Vitals/I&O's: Vital Signs Temp Pulse Resp BP Pulse Ox 97.7 F L 66 16 124/61 H 99 10/07/20 08:38 10/07/20 08:38 10/07/20 08:38 10/07/20 08:38 10/07/20 08:38 Oxygen Delivery Method Room Air Weight: 380 lb Body Mass Index (BMI) 74.2 Finger Stick Blood Glucose 85 Intake and Output for Last 24 Hours 10/05/20 10/06/20 10/07/20 23:59 23:59 23:59 Intake Total 1000 / 1000 2702.5 / 2702.5 976.67 / 976.67 Output Total 0 / 0 200 / 200 Balance 1000 / 1000 2702.5 / 2702.5 776.67 / 776.67 General: Alert, Oriented x3, Cooperative, No apparent distress HEENT: Atraumatic, PERRLA, EOMI, Normocephalic Oral: Moist Mucosa, No Gingival or Mucosal Lesions/ Ulcerations Neck: Supple, No JVD, Negative Carotid Bruits, Trachea Midline, Thyroid Normal Size and Texture Lungs: Clear to auscultation, Normal air movement, No rhonchi, No wheeze, No rales Cardiovascular: Regular rate, Regular Rhythm, Normal S1, Normal S2, PMI Normal Abdomen: Bowel Sounds Present, Soft, Non Tender, Non-Distended, No Hepato-splenomegaly, Obese Extremities: No clubbing, No cyanosis, No edema Skin: No rashes, No breakdown Lymphatic: No Cervical, Supraclavicular, or Inguinal Adenopathy Neurological: Cranial nerves II-XII grossly intact, Neuro grossly intact Psych/Mental Status: Normal Affect, Appropriate Laboratory Results 10/07/20 06:29: WBC 9.4, RBC 4.36, Hgb 10.5 L, Hct 34.6 L, MCV 79.4 L, MCH 24.1 L, MCHC 30.3 L, RDW Std Deviation 45.7 H, RDW Coeff of Flavia 15.9 H, Plt Count 276, MPV 10.6, Immature Gran % (Auto) 0.200, Neut % (Auto) 57.5, Lymph % (Auto) 27.7, [place] % (Auto) 5.0, Eos % (Auto) 9.1 H, Baso % (Auto) 0.5, Absolute Neuts (auto) 5.4, Absolute Lymphs (auto) 2.59, Nucleated RBC % 0 10/07/20 06:29: Sodium 139, Potassium 3.5, Chloride 106, Carbon Dioxide 26.0, Anion Gap 7, BUN 9, Creatinine 0.75, Estim Creat Clear Calc 83.80, Est GFR (MDRD) Af Amer 123, Est GFR (MDRD) Non-Af 102, BUN/Creatinine Ratio 12.0, Glucose 81, Calcium 8.4 L, Total Bilirubin 0.40, AST 20, ALT 35, Alkaline Phosphatase 88, Total Protein 7.2, Albumin 2.8 L, Globulin 4.4 H, Albumin/Globulin Ratio 0.6 L, Lipase 123 Current Medications Buspirone HCl (Buspirone 5 Mg Tablet) 10 mg PO TID [facility] Last Admin: 10/07/20 05:33 Dose: 10 mg Documented by: Enoxaparin Sodium (Enoxaparin 40 Mg/0.4 Ml Syringe) 40 mg SC BID [facility] Last Admin: 10/07/20 08:41 Dose: 40 mg Documented by: Lactated Ringer's () 1,000 mls @ 100 mls/hr IV .Q10H [facility] Last Admin: 10/07/20 02:10 Dose: 100 mls/hr Documented by: Famotidine 20 mg/ Sodium (Chloride) 10 mls @ 300 mls/hr IV Q12 [facility] Last Infusion: 10/07/20 08:43 Dose: Infused Documented by: Ketorolac Tromethamine (Ketorolac 15 Mg/Ml Vial) 15 mg IV Q6H PRN PRN PRN Reason: pain 6-10 Stop: 10/11/20 02:20 Last Admin: 10/06/20 16:30 Dose: 15 mg Documented by: Morphine Sulfate (Morphine 2 Mg/Ml Syringe) 2 mg IV Q3H PRN PRN PRN Reason: Pain Score 6-10 Ondansetron HCl (Ondansetron 4 Mg/2 Ml Vial) 4 mg IV Q6H PRN PRN PRN Reason: NAUSEA/VOMITING Sertraline HCl (Sertraline 50 Mg Tablet) 25 mg PO DAILY [facility] Last Admin: 10/07/20 08:41 Dose: 25 mg Documented by: Sodium Chloride (0.9% Saline Lock 10 Ml Syringe) 10 - 40 ml IV UD PRN PRN Reason: SALINE FLUSH Last Admin: 10/05/20 23:48 Dose: 10 ml Documented by: Discharge Activity: Return to Normal Activity Weight Bearing Status: Full weight bearing Call your doctor if you observe: Fever of 101 or Higher, Shortness of breath, Dizziness, Fainting spells, Chest pain, Increased palpitations (irregular heartbeat), Uncontrolled pain Home Medications: Medications to take at Discharge sertraline 25 mg tablet 25 mg PO QDAY #14 tab 12/29/17 Buspirone HCl 30 mg PO DAILY 02/06/20 metFORMIN HCl [Glucophage] 500 mg PO BID 02/06/20 Pantoprazole Sodium [Protonix] 40 mg PO DAILY #14 tab 10/07/20 Following Prescriptions Were Given to Patient: Pantoprazole Sodium [Protonix] 40 mg PO DAILY #14 tab [facility]: [facility] Primary Care Physician: Care Physician,No Primary [NON-STAFF] - Please follow up with your Primary Care Physician in: 1 week. Please Follow Up With: Unruly Dodd MD When: 2 weeks. Disposition: Home Minutes spent on discharge:: 32 Patient Condition:: Stable Medical Necessity - Tobacco Use Smoking Status: Former smoker Meaningful Use Info Meaningful Use Diagnoses (Choose all that apply): None applicable Inpatient E&M: 28253 Disch Hosp
[2020-10-07 13:38] VITALS: BP 118/51; PULSE 95; RESP 16; TEMP 36.3; O2SAT 98
[2020-10-07] MEDS: Ketorolac 15 MG/ML Vial IV (13:42)
[2020-10-07] MEDS: 0.9% Saline Lock 10 ML Syringe IV (13:42)
== END 2020-10-07 14:22 | disposition home or self-care (01) | DRG 439 ==
LOC: ED 19:35 → MS3 22:03
PROVIDERS: Admitting Provider Hospitalist; Emergency Provider Emergency Medicine; Visit Provider Hospitalist
DX: K85.90 Acute pancreatitis without necrosis or infection, unspecified (principal); Z68.45 Body mass index [BMI] 70 or greater, adult; K82.8 Other specified diseases of gallbladder; E66.01 Morbid (severe) obesity due to excess calories; E28.2 Polycystic ovarian syndrome; Z79.84 Long term (current) use of oral hypoglycemic drugs; E78.5 Hyperlipidemia, unspecified; Z87.891 Personal history of nicotine dependence; F32.9 Major depressive disorder, single episode, unspecified; F43.10 Post-traumatic stress disorder, unspecified; Z79.899 Other long term (current) drug therapy
CPT/HCPCS: 36415; 76705; 78227; 80053; 80061; 82962; 83690; 84703; 85025; 99283; 99406; A9537; J7030; J7120; 90686; A4216; J2405; J2805; J3490

== ENCOUNTER 2020-10-27 16:42 | Emergency (ER) | payer OTHER, SELFPAY ==
[2020-10-18 09:44] VITALS: BMI 74.2
[2020-10-27 16:43] VITALS: BP 144/82; PULSE 123; RESP 18; TEMP 36.2; O2SAT 100; BMI 74.2
--- NOTE | 2020-10-27 16:53 | ED.VIS.GEN ---
History of Present Illness Chief Complaint: Abd Pain Informant: Patient Narrative: 25 year-old female presents with concern for right upper quadrant pain. Patient is due to have a cholecystectomy in 5 days. Patient states that she cannot wait because she is having too much nausea, vomiting, abdominal pain. States she is experiencing this even when she is not eating. Denies any fever or chills. States that 2 to 3 weeks ago she was admitted to this hospital for gallstone pancreatitis. Denies any urinary symptoms. Last menstrual period 3 weeks ago. Past Medical History - Allergies and Home Meds Allergies/Adverse Reactions: Allergies amoxicillin Allergy (Verified 10/27/20 16:45) Hives pseudoephedrine Allergy (Verified 10/27/20 16:45) Rash Primary Care Physician: TIERNEY BALDWIN [Other] Prior records reviewed: Yes Past Medical History: None Surgical History: - - Finger surgery; D&C Lives: With Family Smoking Status: Former smoker Alcohol: None Drugs: None Review of Systems General: Denies: Chills, Fever, Sweats Eyes: Denies: Visual changes - bilaterally, Diplopia ENT: Denies: Rhinorrhea, Sore throat Cardiovascular: Denies: Chest pain, Palpitations Respiratory: Denies: Dyspnea, Cough, Dyspnea on exertion Gastrointestinal: Reports: Abdominal pain, Nausea, Vomiting. Denies: Diarrhea, Melena, Hematochezia Genitourinary: Denies: Dysuria, Hematuria, Frequency Musculoskeletal: Denies: Back pain, Extremity Pain Skin: Denies: Rash, Wounds Neurological: Denies: Headache, Weakness, Numbness Physical Exam Vital Signs/Narrative: Vital Signs Temp Pulse Resp BP Pulse Ox 10/27/20 16:43 97.1 F L 123 H 18 144/82 H 100 General: Well nourished, Well developed, No Acute Distress Head: Normocephalic, Atraumatic Eyes: Perrl, EOMI ENT: Moist mucous membranes, No rhinorrhea Neck: Supple, Nontender Cardiovascular: Regular rate, Regular rhythm, No murmurs Respiratory: No distress, CTA bilaterally, Chest nontender Abdomen: Soft, Nondistended, Normal bowel sounds, - - TTP in the RUQ. Back: Nontender, Normal Inspection Extremities: Nontender, No edema Skin: Normal color, No rash Neurological: Alert, Oriented x3, Cranial nerves II-XII grossly intact, Normal Strength, Normal Sensation Psychological: Normal affect, Normal Mood Diagnostic/Tx/Re-eval Clinical Impression(s) from Imaging Studies Abdomen Ultrasound 10/27/20 18:16 IMPRESSION: Fatty infiltration of the liver. Electronically Signed: Flip Galvan MD at 19:01 EST Tel , Service support , Laboratory Data 10/27/20 10/27/20 10/27/20 17:10 17:10 18:05 WBC 16.1 H RBC 5.12 Hgb 12.2 Hct 40.1 MCV 78.3 L MCH 23.8 L MCHC 30.4 L RDW Std Deviation 45.1 H RDW Coeff of Flavia 15.8 H Plt Count 419 MPV 11.6 Immature Gran % (Auto) 0.600 Neut % (Auto) 66.9 Lymph % (Auto) 21.4 [place] % (Auto) 4.4 Eos % (Auto) 6.0 H Baso % (Auto) 0.7 Absolute Neuts (auto) 10.8 H Absolute Lymphs (auto) 3.45 Nucleated RBC % 0 Sodium 138 Potassium 3.7 Chloride 104 Carbon Dioxide 28.0 Anion Gap 6 BUN 10 Creatinine 0.94 Estim Creat Clear Calc 66.86 Est GFR (MDRD) Af Amer 95 Est GFR (MDRD) Non-Af 78 BUN/Creatinine Ratio 10.6 Glucose 79 Lactic Acid Calcium 9.1 Total Bilirubin 0.30 AST 26 ALT 44 Alkaline Phosphatase 119 H Total Protein 9.1 H Albumin 3.6 Globulin 5.5 H Albumin/Globulin Ratio 0.7 L Lipase 134 Urine Color Yellow Urine Clarity Cloudy Urine pH 5.0 Ur Specific [place] 1.020 Urine Protein 30 H Urine Glucose (UA) Normal Urine Ketones 5 H Urine Occult Blood 250 H Urine Nitrite Negative Urine Bilirubin Negative Urine Urobilinogen 1 H Ur Leukocyte Esterase 500 H Urine RBC 5-10 SEEN Urine WBC 0-5 SEEN Ur Squamous Epith Cells 10-25 SEEN Urine Bacteria 1+ Urine Mucus 1+ Urine Test Negative 10/27/20 18:45 WBC RBC Hgb Hct MCV MCH MCHC RDW Std Deviation RDW Coeff of Flavia Plt Count MPV Immature Gran % (Auto) Neut % (Auto) Lymph % (Auto) [place] % (Auto) Eos % (Auto) Baso % (Auto) Absolute Neuts (auto) Absolute Lymphs (auto) Nucleated RBC % Sodium Potassium Chloride Carbon Dioxide Anion Gap BUN Creatinine Estim Creat Clear Calc Est GFR (MDRD) Af Amer Est GFR (MDRD) Non-Af BUN/Creatinine Ratio Glucose Lactic Acid 0.8 Calcium Total Bilirubin AST ALT Alkaline Phosphatase Total Protein Albumin Globulin Albumin/Globulin Ratio Lipase Urine Color Urine Clarity Urine pH Ur Specific [place] Urine Protein Urine Glucose (UA) Urine Ketones Urine Occult Blood Urine Nitrite Urine Bilirubin Urine Urobilinogen Ur Leukocyte Esterase Urine RBC Urine WBC Ur Squamous Epith Cells Urine Bacteria Urine Mucus Urine Test - Medical Decision Making Patient appears well and nontoxic. Afebrile. 16,000 white blood cell count. Patient was given IV antibiotics with concern for cholecystitis. She was also given 1 L of normal saline. Patient's heart rate improved prior to finishing the fluid. Ultrasound of the gallbladder shows no acute cholecystitis. No gallstones. Patient's pain is improved after Toradol and Zofran. Dr. Nuñez was consulted on the case who examined the patient. Feels that given a normal ultrasound she could be sent home on antibiotic therapy as well as pain control and keep her scheduled appointment for cholecystectomy in 4 days. Patient is agreeable with this plan and stable at time of discharge. Impression: 1. Biliary colic ED Disposition - Plan for ED Patient: Disposition: Home or Assisted Living Instructions: ED Gallstones with Biliary Colic Prescriptions: metroNIDAZOLE [Flagyl] 500 mg PO Q8H #21 tab Prescription Printed levoFLOXacin tablet [Levaquin tablet] 750 mg PO DAILY #7 tab Prescription Printed Hydrocodone Bitart/Apap 5-325 [[place] 5MG-325MG] 1 tab PO Q8H PRN PRN 5 Days #15 tab PRN Reason: Pain Transmission Status: Received by [facility] Ondansetron HCl [Zofran] 4 mg PO Q8 PRN 2 Days #6 tab PRN Reason: Nausea/Vomiting Transmission Status: Received by [facility] Referrals: TIERNEY BALDWIN [Other]
[2020-10-27] MEDS: Ketorolac 15 MG/ML Vial IV (17:07)
[2020-10-27] MEDS: Ondansetron 4 MG/2 ML Vial IV (17:07)
[2020-10-27 17:56] LABS: Absolute Lymphocyte Count 3.45 X10^3/uL (0.83-4.51); Absolute Neutrophil Count 10.8 X10^3/uL (2.0-7.7); Basophil# 0.11 X10^3/uL; Basophil% 0.7 % (0-1); Eosinophil# 0.97 X10^3/uL; Hematocrit 40.1 % (37-47); Hemoglobin 12.2 g/dL (12.0-15.0); Lymphocyte # 3.45 X10^3/ul (4.0); Lymphocyte % 21.4 % (19-41); Mean Corp Hgb Conc 30.4 g/dL (32-36); Mean Corpuscular Hgb 23.8 pg (27.0-32.0); Mean Corpuscular Volume 78.3 fL (81-99); Mean Platelet Vol. 11.6 fl (6.2-12.0); Monocyte% 4.4 % (0-10); NRBC Flagged by Analyzer 0 % (0-5); Neutrophil # 10.76 X10^3/uL (2.7-7.7); Neutrophil % 66.9 % (47-70); Platelet Count 419 K/mm3 (150-450); RBC Distribution Width CV 15.8 % (11.6-14.6); RBC Distribution Width SD 45.1 fl (35.1-43.9); Red Blood Count 5.12 M/mm3 (4.2-5.4); White Blood Count 16.1 K/mm3 (4.4-11.0)
--- NOTE | 2020-10-27 18:16 | US_ITS ---
STUDY: ABDOMINAL ULTRASOUND - RIGHT UPPER QUADRANT REASON FOR VISIT: Female, 25 years old RUQ PAIN TECHNIQUE: Ultrasound evaluation of the right upper quadrant was performed with real-time and static mart-scale imaging. TECHNICAL QUALITY: Adequate. COMPARISON: None. FINDINGS: Liver: The liver measures 20.3 cm. There is increased echogenicity consistent with fatty infiltration. The bile ducts are within normal limits. There is hepatic color flow. The direction of portal flow is hepatopetal. There is no demonstrated mass lesion. Gallbladder: Normal distended gallbladder. The gallbladder wall measures 2 mm. There is a negative sonographic Machuca''s sign. There is no pericholecystic fluid. There are no gallstones. Common Bile Duct (C.B.D.): The common bile duct measures 3 mm. Pancreas: Normal size of the head, body and tail of the pancreas. There is normal echogenicity of the pancreas. There is no demonstrated pancreatic mass or cyst. Right Kidney: Normal size of the right kidney. The right kidney measures 10.8 cm. Normal renal cortex. The right cortex measures 1.7 cm. There is no demonstrated renal mass or cyst. There is no right hydronephrosis. US/Abdomen Limited IMPRESSION: Fatty infiltration of the liver. Electronically Signed: Flip Galvan MD at 19:01 EST Tel , Service support ,
[2020-10-27 18:24] LABS: ALB/GLOB Ratio 0.7 RATIO (0.9-2.4); AST(SGOT) 26 U/L (15-37); Alanine Aminotransfer ALT/SGPT 44 U/L (13-56); Albumin, Serum 3.6 g/dL (3.2-5.0); Alkaline Phosphatase 119 U/L (45-117); Anion Gap 6 (5-15); BUN 10 mg/dL (7-18); BUN/Creat Ratio 10.6 RATIO (10-20); Calcium,Total 9.1 mg/dL (8.5-10.1); Chloride 104 mmol/L (98-107); Creatinine, Serum 0.94 mg/dL (0.55-1.02); EST Glomerular Filtration Rate 78 mL/min (>60); Est Glom Filt Rate - Afr Amer 95 mL/min (>60); Estimated Creatinine Clearance 66.86 ml/min; Globulin 5.5 g/dL (2.2-4.2); Glucose 79 mg/dL (74-106); Lipase 134 U/L (73-393); Potassium 3.7 mmol/L (3.5-5.1); Protein, Total 9.1 g/dL (6.4-8.2); Sodium Level 138 mmol/L (136-145)
[2020-10-27 18:32] LABS: Color, Urine Yellow (Yellow); Glucose, Dipstick Normal (Normal); Ketone-Dipstick 5 mg/dl (Negative); Leukocyte Esterase-Dipstick 500 /ul (Negative); Nitrite-Dipstick Negative (Negative); Occult Blood-Urine 250 /ul (Negative); Protein-Dipstick 30 mg/dl (Negative); Urine Bilirubin Dipstick Negative (Negative); Urine Clarity Cloudy (Clear); Urine Urobilinogen 1 mg/dl (Normal)
[2020-10-27 18:39] LABS: Red Blood Cells-Urine 5-10 SEEN /hpf (0-5); Squamous Epithelial Cells - UA 10-25 SEEN /hpf (5-10); White Blood Cells 0-5 SEEN /hpf (0-5)
[2020-10-27 18:40] LABS: Bacteria 1+ /hpf (None Seen); Mucous, Urine 1+ /hpf (<or=2+)
[2020-10-27] MEDS: HYDROmorphone 0.5 MG/0.5 ML SYRINGE IV (18:55)
[2020-10-27 18:56] VITALS: BP 160/89; PULSE 88; RESP 16; O2SAT 98
[2020-10-27 19:18] LABS: Internal QC Validated? YES +Cl - CLEAR BKGD; Pregnancy, Urine Negative Negative
[2020-10-27 19:21] LABS: Lactic Acid 0.8 mmol/L (0.4-1.9)
[2020-10-27] MEDS: metroNIDAZOLE 500 MG/100 ML BAG 100 MG IV (19:47)
[2020-10-27 20:56] VITALS: PULSE 92; RESP 18; O2SAT 96
== END 2020-10-27 20:56 | disposition home or self-care (01) ==
PROVIDERS: Emergency Provider Emergency Medicine
DX: K80.50 Calculus of bile duct without cholangitis or cholecystitis without obstruction (principal); Z87.891 Personal history of nicotine dependence
CPT/HCPCS: 76705; 80053; 81001; 81025; 83605; 83690; 85025; 87040; 96365; 96367; 96375; 99283; J7050; A4216; J2405

== ENCOUNTER 2020-10-31 05:55 | Day surgery (SDC) | payer OTHER, SELFPAY ==
[2020-10-18 09:44] VITALS: BMI 74.2
--- NOTE | 2020-10-30 10:02 | EKG12_ITS ---
Test Reason : PREOP Blood Pressure : / mmHG Vent. Rate : 088 BPM Atrial Rate : 088 BPM P-R Int : 146 ms QRS Dur : 080 ms QT Int : 350 ms P-R-T Axes : 046 043 036 degrees QTc Int : 423 ms Normal sinus rhythm Normal ECG Confirmed by REYNALDO AYERS, MEÑO ([id number]), state editor CHEMA VILLAVICENCIO ([id number]) on 10/31/2020 10:55:45 AM Referred By: Unruly Dodd Confirmed By:MEÑO JACOBS MD
[2020-10-31] VITALS (10 sets, daily range): BP systolic 122–150; BP diastolic 67–101; PULSE 56–110; RESP 16–18; TEMP 36.1–36.8; O2SAT 92–100; BMI 74.7
[2020-10-31 06:21] LABS: Internal QC Validated? YES +Cl - CLEAR BKGD; Pregnancy, Urine Negative Negative
--- NOTE | 2020-10-31 06:30 | HP_ITS ---
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 Unruly Dodd MD) Pancreatitis (Acute) Streptococcal pharyngitis (Inactive) Abdominal pain (Acute) Asthma (Acute) Chest pain (Acute) GERD (gastroesophageal reflux disease) (Acute) Nausea and vomiting (Acute) PCOS (polycystic ovarian syndrome) (Acute) Suicidal thoughts (Acute) HTN (hypertension) (Chronic) Surgical History (Updated 10/18/20 @ 09:43 by Fidelia Zelaya) history removal wisdom teeth (Acute) history surgery left index finger (Acute) Family History (Updated 10/18/20 @ 09:44 by Fidelia Zelaya) Father Asthma Diabetes CVA (cerebral vascular accident) Aunt Cancer uterine cancer Mother Hypertension Seizures Social History (Updated 10/19/20 @ 10:[address] Unruly Dodd MD) Smoking Status: Former smoker alcohol intake: never substance use type: does not use HPI HPI HPI: JOAN RESENDIZ is a 25 F who presents to the office today for HPI HPI Surgical H&P: Yes HPI: JOAN RESENDIZ is a 25 F who presents to the office today for right upper quadrant pain. The patient was recently admitted with gallstone pancreatitis. She also had a HIDA scan which showed a very low ejection fraction. Patient describes right upper quadrant pain especially with eating. She has nausea but no vomiting. ROS General General: No weight change, appetite, fatigue, colon cancer, breast cancer or weakness HEENT HEENT: No difficulty swallowing, eye injury, eye surgery, swollen glands or hoarseness Endo Endocrine: No thyroid disease, diabetes mellitus, thyroid cancer, Hair loss, heat intolerance or cold intolerance Skin Skin: No rash or changing moles Breast Breast: No left breast lump, right breast lump, nipple discharge, breast pain, abnormal mammogram, abnormal US or breast enlargement Musc Musculoskeletal: Yes back problems; no arthritis, rheumatoid arthritis, gout or joint pain Cardio Cardiovascular: No murmur, pacemaker, heart disease, atrial fibrillation, high blood pressure, heart attack, heart stent, palpitations, shortness of breat with exertion or chest pain Psych Psychiatric: Yes depression and anxiety; no hearing voices Resp Respiratory: No shortness of breath, No sleep apnea, No cough, No COPD, Yes asthma, No emphysema, No wheezing Gastro Gastrointestinal: Yes abdominal pain, Yes nausea or vomiting, No diarrhea, Yes constipation, No blood in stool, Yes acid reflux, No hemorrhoids, No ulcers, Yes gallbladder problem, No black,tarry stools Additional Details: Pancreatitis [place] Hematologic: No blood thinners, No blood disorders, No bleeding, No anemia, No blood clots Neuro Neurologic: No system reviewed and no additional complaints, except as docu, No as per HPI, No abnormal walking, No abnormal hearing, No abnormal movements, No abnormal speech, No behavioral changes, No burning sensations, No confusion, No seizure-like activity, No unsteadiness, No dizziness, No localized weakness, No frequent falls, No headache(s), No lack of coordination, No loss of vision, No memory loss, No numbness, No other visual disturbances, No radiating pain, No restless legs, No sensory deficit, No fainting, No tingling, No tremor(s), No weakness, No other Exam Const General: cooperative Nutritional Appearance: obese morbidly obese Orientation: alert, oriented x3 Chest Breast Palpation: No nipple discharge Resp Effort & Inspection: normal respiratory effort Auscultation: clear to auscultation bilaterally Cardio Rate: regular rate Rhythm: regular rhythm Heart Sounds: no murmurs GI Inspection: non-distended Palpation: soft, nontender Assessment & Plan Problems 1. Acute biliary pancreatitis, unspecified complication status K85.10 Plan The patient was admitted with gallstone pancreatitis. She also had a HIDA scan which showed ejection fraction of 5%. The patient likely has small gallstones that were not picked up on ultrasound. I would recommend laparoscopic cholecystectomy. The patient is morbidly obese and I did discuss that this would increase her risk during surgery. I discussed the procedure in detail with the patient. I discussed the risks, benefits, and alternatives of the procedure. I discussed the risks including but not limited to bleeding, infection, injury to surrounding organs such as the liver, bile duct, bowels. I did discuss the possibility of having to convert to an open procedure as well as the possibility that if any injuries occurred this may necessitate further surgery at a tertiary care center. We discussed the current risks associated with COVID-19. While it is understood that there is a community spread of COVID-19, the risk of zuleika COVID-19 while at [facility] ([facility]) is very low; however, the risk cannot be completely mitigated because of the community spread of the disease. We discussed in detail the risk of exposure to and/or potential harm posed by the COVID-19 virus with having a surgery/procedure at this time versus the risk of delaying the surgery/procedure. It is not possible to know either the risk of delaying the surgery or procedure or chance of getting an infection with perfect accuracy, but a joint decision was made to proceed at this time with the scheduled surgery/procedure as indicated on the consent form. Patient was notified that we will need to comply with any screening or testing [facility] wishes to perform or that surgery may be delayed for any positive results. Unruly Dodd MD Pager: [facility] [address] [place] [address], [address] [place] [address] Office: Coding Level of Care Code Off vis,new,level 3 Diagnoses Acute biliary pancreatitis, unspecified complication status K85.10 ??Chronicity: acute ??Pancreatitis type: biliary ??Acute pancreatitis complication: unspecified I have re-examined the patient. There are no clinical changes since date of exam.
[2020-10-31] MEDS: Lactated Ringers 1,000 ML 100 ML IV ×2 (06:36→09:13)
--- NOTE | 2020-10-31 07:30 | RAD_ITS ---
STUDY: INTRAOPERATIVE CHOLANGIOGRAM. REASON FOR EXAM: Female, 25 years old. Pain. FLUOROSCOPY TIME (if supplied): ( 30.6 seconds ) minutes/seconds. A cine loop of 27 images was submitted. TECHNIQUE: An intraoperative Cholangiogram was performed by the surgeon. Imaging was submitted. COMPARISON: None. FINDINGS: The common bile duct is not dilated. No intraluminal filling defect is seen. RAD/Cholangiogram/ O R,Initial IMPRESSION: Unremarkable intraoperative cholangiogram. Electronically Signed: Fredrick Vargas MD at 9:18 EST , Service support ,
--- NOTE | 2020-10-31 07:30 | GALL_PTH ---
PATIENT: JOAN RESENDIZ LOC: [facility] [place] U#:[id number] AGE/SX: 25/F ROOM: RE10/31/[address]: Dr. Unruly Dodd MD : [id number] BED: DIS: 10/31/2020 SPEC #: [id number] RECD: 10/31/20 10:14 STATUS: FELICITA JARAMILLORamya #: [id number] LEFTY: 10/31/20 07:[address]: Unruly Dodd DEPT: SURGICAL PATHOLOGY RECD BY: Demetris Meraz Tissues: Gallbladder, NOS Procedures: Surgery Specimen Level III HEADER OPERATION: Laparoscopic cholecystectomy with IOC PRE-OP DIAGNOSIS: Acute biliary pancreatitis TISSUE SUBMITTED: Gallbladder MICROSCOPIC DIAGNOSIS Gallbladder, cholecystectomy: Cholesterolosis and chronic cholecystitis. AM:ramiro 11/01/2020 MICROSCOPIC DESCRIPTION Slides are reviewed. GROSS DESCRIPTION Received is one container labeled with the patient's name and designated gallbladder. The specimen consists of a gallbladder measuring 7 x 2.4 x 2 cm. The external surface is smooth and glistening. Focally, it is granular, hemorrhagic and contains cautery artifact. The lumen of the gallbladder contains yellow mucoid bile and no calculi. The mucosa is bile-stained and without any mass lesions. The gallbladder wall averages 0.2 cm in thickness and is free of mass lesions. Engine Buildup Mechanic sections of the gallbladder and the cystic duct at margin of resection are submitted in one cassette. / AM:ramiro 10/31/20 TC:3 CPT: 98197
[2020-10-31] MEDS: Bupiv/Epi 0.25% 30 ML Vial (07:46)
--- NOTE | 2020-10-31 08:41 | OP.PCM_ITS ---
Problem List (1) Biliary dyskinesia Status: Acute (2) Pancreatitis Status: Acute Qualifiers: Report of Operation Date of Procedure: 10/31/20 Pre-Operative Diagnosis: Biliary dyskinesia and a history of pancreatitis Post-Operative Diagnosis: Same Surgery/Procedure Performed:: Laparoscopic cholecystectomy with cholangiogram Specimen's removed: Gallbladder Description of Procedure: After obtaining informed consent patient was brought back to the operating room. General anesthesia was induced. The abdomen was prepped and draped in usual sterile fashion. A small midline incision was made superior to the umbilicus and deepened to the level of fascia. The fascia was elevated and incised. Next the peritoneum was elevated and incised in the same fashion. Finger sweep was performed and the Schmidt trocar was placed into the abdomen. The balloon was inflated. The abdomen was inflated to 15 mmHg. Next a camera was introduced into the abdomen and the abdomen was inspected. Next under direct visualization three 5-mm ports were placed one subxiphoid and 2 subcostal. Next the gallblad leonard was elevated and retracted toward the right shoulder. The peritoneum was stripped from the gallbladder. The infundibulum was located and retracted laterally. Next the triangle of Calot was dissected and the cystic duct and cystic artery were identified. Cholangiograms were performed. The Jansen clamp was used to clamp across the infundibulum and the catheter needle was inserted into the gallbladder. I was unable to flush using the Jansen catheter. The Jansen clamp was removed and a clip was placed in the proximal cystic duct. A 14 Portuguese Angiocath was placed in the right upper quadrant and a catheter was placed through this. A pedro was made in the cystic duct and the catheter was guided into the cystic duct. A clip was placed over the catheter. Under fluoroscopy contrast was instilled into the common duct, cystic duct as well as proximal hepatic ducts were identified. There was good filling of the duodenum. There were no filling defects noted in the common bile duct. The catheter was removed and the infundibulum was grasped once more. Three hemolock clips were placed across the cystic duct. The cystic duct was then divided leaving 2 clips on the stump. The cystic artery was clipped and divided in the same fashion. The hook cautery was then used to take the gallbladder off of the gallbladder bed. Hemostasis was obtained. Gallbladder fossa was irrigated and no active bleeding or bile leakage was noted. Next the camera was introduced in the subxiphoid port. An Endopouch bag was placed through the umbilical port and the gallbladder was placed into it. The gallbladder was then removed through the umbilical incision. The camera was then reinserted through the umbilical port. The gallbladder fossa was inspected once more and noted to be hemostatic with no leaking bile. The abdomen was suctioned dry. The 5 mm ports were removed under direct visualization. The umbilical port was then removed and the air was removed from the abdomen. Next using an 0 Vicryl suture the umbilical fascia was closed in a ffcipr-[id number] fashion. The umbilical port site was irrigated local anesthetic was administered to all the incisions. All the incisions were closed with interrupted subcuticular 4-0 Monocryl sutures followed by Steri- Strips and dressings. The patient was awoken and taken to PACU in stable condition. - Admit VTE Documentation VTE Mechan Device Prophylaxis: SCD's
--- NOTE | 2020-10-31 08:44 | PCM.DC.GB ---
Discharge Diet: Light diet - advance as tolerated Discharge Activity: Return to Normal Activity, May Not Drive - for 2-3 days or while taking narcotic pain medicataions., - - Do not drive, work heavy equipment or sign legal documents for 24 hours. May shower in (days): 1 - with the bandage in place. Lifting Restrictions: 20 lbs for 3 weeks Additional Activity Instructions:: Pain medication may cause nausea. You should typically eat light foods as you take your pain medications. Pain medication may also cause constipation. If this is a problem for you, please discuss with your doctor. Call your doctor if your incision/area has: Continuous Slow Oozing, Sudden Increased Bleeding, Increased Pain/ Swelling, Increased Redness, Foul Smelling Discharge, Fever of 101 or Higher Call your doctor if you observe: Fever of 101 or Higher Suture Line Care: Avoid Pulling/Pushing, Avoid Pinching/Bending Additional Dressing/Incision Instructions:: Leave operative bandaids on for 2 days. When you remove dressing, leave Steri-Strips on until your follow-up appointment, or until the Steri-Strips fall off on their own. Allergies/Adverse Reactions: Allergies amoxicillin Allergy (Verified 10/27/20 16:45) Hives pseudoephedrine Allergy (Verified 10/27/20 16:45) Rash Medications to take at Discharge metFORMIN HCl [Glucophage] 500 mg PO BID 02/06/20 buspirone 30 mg tablet 25 mg PO QHS tab 10/18/20 famotidine 20 mg tablet 20 mg PO BID 10/18/20 sertraline 25 mg tablet 50 mg PO QHS tab 10/18/20 Hydrocodone Bitart/Apap 5-325 [[place] 5MG-325MG] 1 tab PO Q8H PRN PRN 5 Days #15 tab 10/27/20 levoFLOXacin tablet [Levaquin tablet] 750 mg PO DAILY #7 tab 10/27/20 metroNIDAZOLE [Flagyl] 500 mg PO Q8H #21 tab 10/27/20 Oxycodone HCl/Acetaminophen [Percocet 5-325 mg Tablet] 1 - 2 tab PO Q6H PRN PRN 5 Days #40 tablet 10/31/20 The following prescriptions were given: Oxycodone HCl/Acetaminophen [Percocet 5-325 mg Tablet] 1 - 2 tab PO Q6H PRN PRN 5 Days #40 tablet PRN Reason: Pain Score 4-10/10 Transmission Status: Sent to [facility] Primary Care Physician: TIERNEY BALDWIN [Other] Test Results: Test results from this visit will be discussed in further detail at your follow-up appointment, if applicable. Please Follow Up With: Unruly Dodd MD When: Please call to schedule 2 week follow up appointment. [phone]
[2020-10-31] MEDS: oxyCODONE 5 MG Tablet PO (11:04)
[2020-10-31] MEDS: Acetaminophen 325 MG Tablet PO (11:05)
== END 2020-10-31 14:15 | disposition home or self-care (01) ==
LOC: SDC 05:56 → AC 05:56
PROVIDERS: Anesthesiology; Referring Provider Surgery; Visit Provider Surgery
PROC: (CPT 47610; principal; 2020-10-31 07:10)
DX: K81.1 Chronic cholecystitis (principal); K21.9 Gastro-esophageal reflux disease without esophagitis; J45.909 Unspecified asthma, uncomplicated; E28.2 Polycystic ovarian syndrome; E66.01 Morbid (severe) obesity due to excess calories; F41.9 Anxiety disorder, unspecified; F32.9 Major depressive disorder, single episode, unspecified; Z68.45 Body mass index [BMI] 70 or greater, adult; Z87.891 Personal history of nicotine dependence; Z20.822 Contact with and (suspected) exposure to COVID-19; Z79.84 Long term (current) use of oral hypoglycemic drugs; Z79.899 Other long term (current) drug therapy
CPT/HCPCS: 47563; 74300; 76000; 81025; 87426; 88304; 93005; C9803; J7120; J2405

== ENCOUNTER 2022-07-10 16:15 | Emergency (ER) | payer SELFPAY ==
[2022-07-10 16:16] VITALS: BP 148/95; PULSE 108; RESP 16; TEMP 36.6; O2SAT 100; BMI 74.4
[2022-07-10 18:25] LABS: Mucous, Urine 0 SEEN /hpf (<or=2+)
[2022-07-10] MEDS: 0.9% Normal Saline 1,000 ML 1000 ML IV (18:25)
[2022-07-10 18:29] LABS: Color, Urine Amber (Yellow); Glucose, Dipstick Normal (Normal); Ketone-Dipstick 5 mg/dl (Negative); Leukocyte Esterase-Dipstick 500 /ul (Negative); Nitrite-Dipstick Positive (Negative); Occult Blood-Urine 250 /ul (Negative); Protein-Dipstick 30 mg/dl (Negative); Urine Bilirubin Dipstick Negative (Negative); Urine Clarity Cloudy (Clear); Urine Urobilinogen 1 mg/dl (Normal)
[2022-07-10 18:34] LABS: Red Blood Cells-Urine 50-100 SEEN /hpf (0-5)
[2022-07-10 18:35] LABS: Bacteria 3+ /hpf (None Seen); White Blood Cells 10-25 SEEN /hpf (0-5)
[2022-07-10 18:35] LABS: Absolute Lymphocyte Count 3.22 X10^3/uL (0.83-4.51); Absolute Neutrophil Count 8.3 X10^3/uL (2.0-7.7); Basophil# 0.09 X10^3/uL; Basophil% 0.7 % (0-1); Eosinophil# 0.76 X10^3/uL; Eosinophils% 5.8 % (0-5); Hematocrit 35.2 % (37-47); Hemoglobin 10.7 g/dL (12.0-15.0); Lymphocyte # 3.22 X10^3/ul (0.83-4.51); Lymphocyte % 24.6 % (19-41); Mean Corp Hgb Conc 30.4 g/dL (32-36); Mean Corpuscular Hgb 22.3 pg (27.0-32.0); Mean Corpuscular Volume 73.5 fL (81-99); Mean Platelet Vol. 10.4 fl (6.2-12.0); Monocyte# 0.68 X10^3/uL; Monocyte% 5.2 % (0-10); NRBC Flagged by Analyzer 0 % (0-5); Neutrophil # 8.28 X10^3/uL (2.7-7.7); Neutrophil % 63.4 % (47-70); Platelet Count 352 K/mm3 (150-450); RBC Distribution Width CV 18.1 % (11.6-14.6); RBC Distribution Width SD 47.3 fl (35.1-43.9); Red Blood Count 4.79 M/mm3 (4.2-5.4); White Blood Count 13.1 K/mm3 (4.4-11.0)
[2022-07-10 18:36] LABS: Squamous Epithelial Cells - UA 0-5 SEEN /hpf (5-10)
--- NOTE | 2022-07-10 18:46 | EDS_ITS ---
HPI HPI - Female History of Present Illness Chief Complaint: Vag Bld, Preg Informant: patient Narrative Narrative: Patient is a 26-year-old female with history of ovarian cyst and 4 prior miscarriages presenting with vaginal bleeding and a positive home test. States her last menstrual period was in January however she had her first positive home test about a month ago. She has had 3 days of lower abdominal discomfort and backache and this morning started having vaginal bleeding. Initially she was soaking through the pads but now she is just been passing clots so she is frequently changing her pads. She states she is going through 22 pads today. She has had intercourse 4 days ago. She does feel little lightheaded but does attribute that to not eating anything today. reflux as well as nausea. Denies any severe abdominal pain at this time. Denies any fever or chills. Has some Does not currently have an GLASS CUTTING MACHINE OPERATOR or family care doctor. [facility] Medical History Abdominal pain Asthma Biliary dyskinesia Chest pain GERD (gastroesophageal reflux disease) HTN (hypertension) Nausea and vomiting Pancreatitis PCOS (polycystic ovarian syndrome) Streptococcal pharyngitis Suicidal thoughts Home Medications metformin 1,000 mg tablet 500 mg PO BID diabetes 02/06/20 [History Last Taken 10/05/20] buspirone 30 mg tablet 25 mg PO QHS anxiety, PTSD 10/18/20 [History Last Taken Unknown] famotidine 20 mg tablet 20 mg PO BID 10/18/20 [History Last Taken Unknown] sertraline 25 mg tablet (Zoloft) 50 mg PO QHS 10/18/20 [History Last Taken Unknown] nitrofurantoin monohydrate/macrocrystals 100 mg capsule (Macrobid) 100 mg PO Q12H 5 days #10 caps 07/10/22 [Rx Last Taken Unknown] Allergy/AdvReac Type Severity Reaction Status Date / Time amoxicillin Allergy Hives Verified 07/10/22 16:16 pseudoephedrine Allergy Rash Verified 07/10/22 16:16 Family History Father Asthma Diabetes CVA (cerebral vascular accident) Aunt Cancer uterine cancer Mother Hypertension Seizures Surgical History history removal wisdom teeth history surgery left index finger S/P laparoscopic cholecystectomy Social History Smoking Status: Former smoker alcohol intake: never substance use type: does not use ROS ROS ED Constitutional Constitutional ED: Denies chills or fever(s) Eyes Eyes: Denies change in vision ENT ENT ED: Denies rhinorrhea or sore throat Cardiovascular Cardiovascular: Denies chest pain or palpitations Respiratory/Chest Respiratory/Chest: Denies cough Gastrointestinal Gastrointestinal: Reports abdominal pain and nausea; Denies diarrhea or vomiting Genitourinary Genitourinary ED: Reports other Details: vaginal bleeding ; Denies dysuria or hematuria Musculoskeletal Musculoskeletal: Denies arthralgias or myalgias Integumentary Denies rash Neurologic Neurologic: Denies headache(s) or weakness Psychiatric Psychiatric: Denies anxiety Hematologic/Lymphatic Hematologic/Lymphatic: Denies easy bleeding or easy bruising EXAM Physical Exam Const Vital Signs: 07/10/22 16:16 Temperature 97.9 F Temperature Source Temporal Pulse Rate 108 H Respiratory Rate 16 Blood Pressure 148/95 H Blood Pressure Mean 112 Pulse Ox 100 Oxygen Delivery Method Room Air Positive well nourished, well developed and obese General Appearance ED: well developed and NAD Nutritional Appearance: obese HEENT Reports moist mucous membranes Negative for trauma Eyes PERRL and EOMs intact bilaterally General Eye ED: Negative for pale conjunctiva Neck supple Chest Wall inspection of chest normal and palpation of chest normal Resp normal respiratory effort and clear to auscultation bilaterally Cardio regular rate and regular rhythm GI normal to inspection, nondistended, normoactive bowel sounds, soft to palpation and non-tender Narrative: Normal external genitalia. On speculum exam there is some dark red blood noted coming through the cervix however the cervix is closed. No cervical motion tenderness or adnexal tenderness on bimanual exam. Back/Spine no CVA tenderness Extremity normal to inspection and full ROM Neuro oriented x3 and no sensory deficits noted Sensorium / Orientation: alert Motor Exam: strength 5/5 throughout; Negative for general weakness Psych mental status grossly normal Skin no rashes or lesions noted and no wounds MDM MDM MDM Narrative Medical decision making narrative: Patient is evaluated for vaginal bleeding with a positive home test. Patient states she is gone through 22 pads today. Vital signs are significant for mild hypertension and a pulse of 108. Overall she is well-appearing with a steady gait. Hemoglobin is 10.7 which appears to be near her baseline. In September of this year she was 10.5. Pelvic exam showed some bleeding but no brisk bleeding. Patient does have a mild leukocytosis of 13.1 however chart review shows that she is frequently had higher white blood cell counts and this again is near her baseline. Urinalysis does show some menstrual blood contamination however it is positive for nitrates, 500 leukoesterase with 3+ bacteria. Urine culture sent and patient be started on Macrobid. Patient's serum qualitative and quantitative test are negative. Bedside ultrasound performed by my self does not show any free fluid in the pelvic region and shows small uterus. Patient's abdominal exam is benign. Also patient either had a false positive test, chemical or is already completed a miscarriage. Patient given outpatient follow-up with GLASS CUTTING MACHINE OPERATOR. Patient is counseled return precautions. She verbalizes agreement understand this plan. Discharged home in stable condition. Lab Data Attestation: I reviewed the patient's lab results. Labs: Laboratory Results - last 24 hr 07/10/22 07/10/22 07/10/22 18:10 18:10 18:10 WBC 13.1 H RBC 4.79 Hgb 10.7 L Hct 35.2 L MCV 73.5 L MCH 22.3 L MCHC 30.4 L RDW Std Deviation 47.3 H RDW Coeff of Flavia 18.1 H Plt Count 352 MPV 10.4 Immature Gran % (Auto) 0.300 Neut % (Auto) 63.4 Lymph % (Auto) 24.6 Wright % (Auto) 5.2 Eos % (Auto) 5.8 H Baso % (Auto) 0.7 Absolute Neuts (auto) 8.3 H Absolute Lymphs (auto) 3.22 Nucleated RBC % 0 HCG, Quant Serum , Qual NEGATIVE Urine Color Urine Clarity Urine pH Ur Specific [place] Urine Protein Urine Glucose (UA) Urine Ketones Urine Occult Blood Urine Nitrite Urine Bilirubin Urine Urobilinogen Ur Leukocyte Esterase Urine RBC Urine WBC Ur Squamous Epith Cells Urine Bacteria Urine Mucus Blood Type AB POSITIVE 07/10/22 07/10/22 18:20 18:25 WBC RBC Hgb Hct MCV MCH MCHC RDW Std Deviation RDW Coeff of Flavia Plt Count MPV Immature Gran % (Auto) Neut % (Auto) Lymph % (Auto) Wright % (Auto) Eos % (Auto) Baso % (Auto) Absolute Neuts (auto) Absolute Lymphs (auto) Nucleated RBC % HCG, Quant < 1 Serum , Qual Urine Color [place] Urine Clarity Cloudy Urine pH 7.0 Ur Specific [place] 1.010 Urine Protein 30 H Urine Glucose (UA) Normal Urine Ketones 5 H Urine Occult Blood 250 H Urine Nitrite Positive H Urine Bilirubin Negative Urine Urobilinogen 1 H Ur Leukocyte Esterase 500 H Urine RBC 50-100 SEEN Urine WBC 10-25 SEEN Ur Squamous Epith Cells 0-5 SEEN Urine Bacteria 3+ Urine Mucus 0 SEEN Blood Type Discharge Plan Triage Chief Complaint: Vag Bld, Preg ED Provider: Jessica Styles Dx/Rx/DC Orders Clinical Impression: Abnormal vaginal bleeding, test negative, UTI (urinary tract infection) Instructions: ED Dysfunctional Uterine Bleeding, ED Cystitis Female Adult Prescriptions: New nitrofurantoin monohyd/m-cryst [Macrobid] 100 mg capsule 100 mg PO Q12H 5 Days Qty: 10 0RF Rx Instructions: must administer with a meal/food No Action sertraline [Zoloft] 25 mg tablet 50 mg PO QHS famotidine 20 mg tablet 20 mg PO BID metformin 1,000 MG tablet 500 mg PO BID buspirone 30 mg tablet 25 mg PO QHS Primary Care Provider: Care Physician,No Primary Referrals: Sushma Duncan MD [Med Staff - Active Staff] - 3-5 Days Care Physician,No Primary [Primary Care Provider] - Disposition Disposition: Home, Self Care
[2022-07-10 18:47] LABS: Internal QC Validated? YES +Cl - CLEAR BKGD; Pregnancy, Serum, hCG Quali. NEGATIVE Negative
[2022-07-10 19:24] LABS: hCG Titer Quant., Serum < 1 mIU/mL (1-3)
[2022-07-10] MEDS: Nitrofurantoin Macrocrystals 100 MG Capsule PO (20:11)
[2022-07-10 20:14] VITALS: BP 136/89; PULSE 86; RESP 18; O2SAT 97
== END 2022-07-10 20:15 | disposition home or self-care (01) ==
PROVIDERS: Emergency Provider Emergency Medicine; Visit Provider Emergency Medicine
DX: N39.0 Urinary tract infection, site not specified (principal); I10 Essential (primary) hypertension; N93.9 Abnormal uterine and vaginal bleeding, unspecified; R11.0 Nausea; E66.9 Obesity, unspecified; Z87.891 Personal history of nicotine dependence
CPT/HCPCS: 81001; 84702; 84703; 85025; 86900; 86901; 87086; 87088; 87186; 96360; 96361; 99284; J7030; A4216

== ENCOUNTER 2022-10-19 17:11 | Emergency (ER) | payer SELFPAY ==
[2022-10-19 17:12] VITALS: BP 142/95; PULSE 110; RESP 14; TEMP 36.1; O2SAT 99; BMI 71.3
--- NOTE | 2022-10-19 17:30 | EKG12_ITS ---
Test Reason : CP Blood Pressure : / mmHG Vent. Rate : 105 BPM Atrial Rate : 105 BPM P-R Int : 144 ms QRS Dur : 076 ms QT Int : 332 ms P-R-T Axes : 038 042 020 degrees QTc Int : 438 ms Sinus tachycardia Otherwise normal ECG Confirmed by REYNALDO AYERS, MEÑO ([id number]), features editor CHEMA VILLAVICENCIO ([id number]) on 10/21/2022 1:20:52 PM Referred By: KIET/MILADYS Confirmed By:MEÑO JACOBS MD
[2022-10-19 17:37] VITALS: PULSE 88; RESP 16; O2SAT 99
--- NOTE | 2022-10-19 17:38 | EX.ED.UPPERE ---
HPI History of Present Illness Chief Complaint: Chest Pain Informant: patient Narrative Narrative: Patient has had several weeks of gradual worsening of pain that has been chronic for the past year or 2 in both shoulders and upper chest but worse in the right. She has dyjuo-dfzj-mkrmczil. She notices it mostly worse when she goes grocery shopping and is carrying heavy things with her hands. She does not notice any acute worsening, and she has had no acute injury. Overhead movements are painful. She denies any dyspnea. She states she is here now for this even though it has been several weeks of worsening because she does not have insurance. She does not have a local PCP nor has she seen any specialist for this or had physical therapy although she has had it looked at in the past. [facility] Medical History Abdominal pain Asthma Biliary dyskinesia Chest pain GERD (gastroesophageal reflux disease) HTN (hypertension) Nausea and vomiting Pancreatitis PCOS (polycystic ovarian syndrome) Streptococcal pharyngitis Suicidal thoughts Home Medications metformin 1,000 mg tablet 500 mg PO BID diabetes 02/06/20 [History Last Taken 10/05/20] buspirone 30 mg tablet 25 mg PO QHS anxiety, PTSD 10/18/20 [History Last Taken Unknown] famotidine 20 mg tablet 20 mg PO BID 10/18/20 [History Last Taken Unknown] sertraline 25 mg tablet (Zoloft) 50 mg PO QHS 10/18/20 [History Last Taken Unknown] nitrofurantoin monohydrate/macrocrystals 100 mg capsule (Macrobid) 100 mg PO Q12H 5 days #10 caps 07/10/22 [Rx Last Taken Unknown] meloxicam 15 mg tablet 15 mg PO DAILY #20 tabs 10/19/22 [Rx Last Taken Unknown] Allergy/AdvReac Type Severity Reaction Status Date / Time amoxicillin Allergy Hives Verified 10/19/22 17:12 pseudoephedrine Allergy Rash Verified 10/19/22 17:12 Family History Father Asthma Diabetes CVA (cerebral vascular accident) Aunt Cancer uterine cancer Mother Hypertension Seizures Surgical History history removal wisdom teeth history surgery left index finger S/P laparoscopic cholecystectomy Social History Smoking Status: Former smoker alcohol intake: never substance use type: does not use ROS ROS ED Constitutional Constitutional ED: Denies chills or fever(s) Cardiovascular Cardiovascular: Reports chest pain; Denies palpitations or racing heartbeat Respiratory/Chest Respiratory/Chest: Denies cough or dyspnea Musculoskeletal Musculoskeletal: Reports extremity pain; Denies neck pain Integumentary Denies Abrasions, rash or wounds Neurologic Neurologic: Denies paresthesias or weakness EXAM Physical Exam Const Vital Signs: 10/19/22 17:12 Temperature 97 F L Temperature Source Temporal Pulse Rate 110 H Respiratory Rate 14 Blood Pressure 142/95 H Blood Pressure Mean 110 Pulse Ox 99 Oxygen Delivery Method Room Air Positive well nourished and well developed General Appearance ED: well developed and NAD Neck full ROM and supple Back/Spine normal ROM and normal to inspection Extremity normal to inspection and full ROM Extremity Narrative: Patient is tender in the area of the right biceps tendon and coracoid process, impossible to clinically separate these given her morbid obesity. Positive speeds test. Positive Yergason, right sided only for both. Neuro oriented x3, no focal motor deficits and no sensory deficits noted Sensorium / Orientation: alert Psych mental status grossly normal and thought process normal Skin no wounds Rashes: no rashes MDM MDM MDM Narrative Medical decision making narrative: Patient does not need any emergent work-up here. She had an EKG prior to my evaluation ordered by nursing because she was talking about having chest discomfort. She agrees this is not her heart, EKG is normal and I interpreted it myself. Differential diagnosis includes biceps tendinitis, subcoracoid bursitis, less likely impingement syndrome given where she is having the pain. I will prescribe her meloxicam and refer her to upper extremity orthopedics. She is also given contact for primary care, Dr. Otero next on the unassigned list. Discharge Plan Triage Chief Complaint: Chest Pain ED Provider: Sampson Beltran Dx/Rx/DC Orders Clinical Impression: Biceps tendinitis on right Prescriptions: New meloxicam 15 mg tablet 15 mg PO DAILY Qty: 20 0RF No Action sertraline [Zoloft] 25 mg tablet 50 mg PO QHS famotidine 20 mg tablet 20 mg PO BID metformin 1,000 MG tablet 500 mg PO BID buspirone 30 mg tablet 25 mg PO QHS nitrofurantoin monohyd/m-cryst [Macrobid] 100 mg capsule 100 mg PO Q12H 5 Days Qty: 10 0RF Rx Instructions: must administer with a meal/food Primary Care Provider: Care Physician,No Primary Referrals: Morena Morales MD [Med Staff - Parachutist/Combatant Diver Qualified] - (for primary care) Salinas Villagran MD [Med Staff - Active Staff] - (for upper extremity orthopaedics) Care Physician,No Primary [Primary Care Provider] - Disposition Disposition: Home, Self Care
== END 2022-10-19 17:48 | disposition home or self-care (01) ==
LOC: ED 17:39
PROVIDERS: Emergency Provider Emergency Medicine; Visit Provider Emergency Medicine
DX: M75.21 Bicipital tendinitis, right shoulder (principal); I10 Essential (primary) hypertension; Z87.891 Personal history of nicotine dependence; J45.909 Unspecified asthma, uncomplicated; R07.9 Chest pain, unspecified
CPT/HCPCS: 93005; 99282